=== PATIENT | female | born 1990 | race Caucasian/White ===

== ENCOUNTER → 2021-06-18 08:49 | Outpatient (CLI) | payer OTHER, SELFPAY ==
[2021-06-18 09:45] LABS: Add Manual Diff / Slide Review NO; Basophils Absolute Auto 0 /uL (0-100); Basophils Percent Auto 0.3 % (0-2); Eosinophils Absolute Auto 0 /uL (0-450); Eosinophils Percent Auto 0.4 % (2-4); Hemoglobin 13.7 g/dL (12.0-16.0); Lymphocytes Absolute Auto 1700 /uL (1100-4500); Lymphocytes Percent Auto 15.5 % (25-40); Mean Corpuscular HGB Conc 34.2 % (30-36); Mean Corpuscular Hemoglobin 29.4 PG (26-34); Mean Corpuscular Volume 86.1 fL (80-100); Monocytes Absolute Auto 700 /uL (0-900); Monocytes Percent Auto 6.3 % (3-14); Neutrophils Absolute Auto 8500 /uL (1500-7000); Neutrophils Percent Auto 77.5 % (50-75); Platelet Count 220 X10^3/uL (150-400); Red Blood Cell Count 4.65 X10^6/uL (4.0-5.2); Red Cell Distribution Width 12.8 % (11.6-14.8)
[2021-06-18 10:08] LABS: Appearance Urine UA CLEAR; Bilirubin Urine UA NEGATIVE (NEGATIVE); Color Urine UA YELLOW; Glucose Urine UA NEGATIVE (Negative); Ketones Urine UA NEGATIVE (NEGATIVE); Leukocyte Esterase Urine UA NEGATIVE (NEGATIVE); Nitrite Urine UA NEGATIVE (Negative); Occult Blood Urine UA NEGATIVE (Negative); Protein Urine UA NEGATIVE (Negative); pH Urine UA 7.5 (4.5-8.0)
[2021-06-19 06:40] LABS: RPR Screen Non Reactive (Non Reactive)
[2021-06-19 08:10] LABS: Varicella IgG Antibody 3900 index (Immune >165)
[2021-06-19 16:25] LABS: Hepatitis B Surface Antigen NEGATIVE s/c (NEGATIVE)
[2021-06-19 16:49] LABS: HIV 1 & 2 Ab/Ag 4th Gen Combo NEGATIVE (NEGATIVE); Hep C Virus Ab w/Reflex Quant NEGATIVE s/c (NEGATIVE)
[2021-06-28 14:19] LABS: Rubella Antibody IgG 53.7 IU/mL (>15)
== END ==
PROVIDERS: Referring Provider Obstetrics & Gynecology; Visit Provider Obstetrics & Gynecology
DX: Z34.01 Encounter for supervision of normal first pregnancy, first trimester (principal)
CPT/HCPCS: 36415; 80055; 81003; 86787; 86803; 87086; 87389

== ENCOUNTER → 2021-07-23 15:10 | Outpatient (CLI) | payer OTHER, SELFPAY ==
[2021-07-26 00:04] LABS: AFP, Serum 18.6 ng/mL (.); Calc Gestational Age Ultrasound (.); Estriol, Free 0.69 ng/mL (.); Inhibin A, Dimeric 106.49 pg/mL (.); Inhibin A, MoM 0.68 (.); Maternal Ethnicity Caucasian (.); Maternal Weight 155 lbs (.); Number of Fetuses No (.); OSBR Risk 1 IN 10000 (.); Results Report (.); Test Results *Screen Negative* (.); hCG, MoM 0.77 (.); hCG, Serum 29309 mIU/mL (.)
== END ==
PROVIDERS: Referring Provider Obstetrics & Gynecology; Visit Provider Obstetrics & Gynecology
DX: Z34.02 Encounter for supervision of normal first pregnancy, second trimester (principal)
CPT/HCPCS: 36415; 82105; 82677; 84702; 86336; 86850; 86900; 86901

== ENCOUNTER → 2021-08-20 14:26 | Outpatient (CLI) | payer OTHER, SELFPAY ==
--- NOTE | 2021-08-20 14:28 | DI.US.S_ITS ---
PROCEDURE: US OB >= 14 WEEKS FETUS INDICATIONS: ANATOMY SCAN OUTSIDE/PRIOR DATING DATA: Last menstrual period (LMP): 04/01/2021 LMP-based estimated date of delivery (BAMBI): 01/06/2022. First dating scan (date and location): 06/18/2021. Estimated date of delivery (BAMBI) from first dating scan: 01/10/2022. The calculations are made using the ultrasound BAMBI of 01/10/2022. TECHNIQUE: Real-time scanning was performed of the fetus, with image documentation and biometric measurements. COMPARISON: [facility], , OB >= 14 WEEKS FETUS, 08/04/2021, 13:44. FINDINGS: General: A single living intrauterine gestation is present. Presentation: Vertex. Placenta: Placental position is posterior , without previa. Amniotic fluid index: 10.9 cm, normal range is 5-24 cm. heart rate: 140 beats per minute. Maternal cervical canal: 3.7 cm long. Normal lower limit is 2.5 cm. biometrics: Biparietal diameter: 4.6 cm, 20 weeks Head circumference: 17.2 cm, 19 weeks 5 days Abdominal circumference: 14 cm, 19 weeks 3 days Femur length: 3.2 cm, 20 weeks Clinically estimated gestational age: 19 weeks 4 days Composite gestational age from present scan: 19 weeks 6 days Estimated weight and percentile: 310 g; 55th percentile Anatomic survey: Neuro: Ventricles are non-dilated at less than 10 mm. Cisterna magna is normal at 3-11 mm. Cerebellum is normal in size and morphology. Nuchal skin fold: Normal at less than 6 mm between 14-21 weeks gestational age. Face: Nose and lips, facial profile are normal. Spine: No evidence for spina bifida. Heart: 4-chambered heart is present, with normal ventricular outflow tracts. Diaphragm: Diaphragm is intact. Stomach: Left-sided stomach is present. Kidneys: No hydronephrosis. Normal is less than 5 mm in 2nd trimester, less than 7 mm in 3rd trimester. Cord: 3-vessel cord has orthotopic insertion. Bladder: Normal in size. Extremities: All 4 extremities identified. IMPRESSION: 1. 19 week 6 day single living IUP. 2. Normal anatomic survey. We strive to produce accurate, complete, and clear reports of imaging services. To assist us in improving patient care, this report was composed using standard report templates and voice recognition software. Therefore, it may contain abnormal punctuation, insertions and/or omissions. Occasional wrong-word or sound-alike substitutions may occur. Though we review the report and make efforts to correct it, we do recommend that the report be read carefully in proper context to recognize any text inaccuracies. Dictated by: Darío ROLLE Interpreted: Hammad Holliday MD on 08/20/2021 at 16:29 Approved by: Hammad Holliday M.D. on 08/21/2021 at 9:14
== END ==
PROVIDERS: Referring Provider Obstetrics & Gynecology; Visit Provider Obstetrics & Gynecology
DX: Z34.02 Encounter for supervision of normal first pregnancy, second trimester (principal); Z3A.19 19 weeks gestation of pregnancy
CPT/HCPCS: 76811

== ENCOUNTER → 2021-10-04 10:35 | Outpatient (CLI) | payer OTHER, SELFPAY ==
[2021-10-04 12:27] LABS: Hematocrit 35.9 % (36-46); Hemoglobin 12.6 g/dL (12.0-16.0)
[2021-10-04 13:07] LABS: GTT (PREG) 1 Hour PP 50gm Dose 127 mg/dL (76-139)
== END ==
PROVIDERS: Referring Provider Obstetrics & Gynecology; Visit Provider Obstetrics & Gynecology
DX: Z34.02 Encounter for supervision of normal first pregnancy, second trimester (principal); Z3A.25 25 weeks gestation of pregnancy
CPT/HCPCS: 36415; 82950; 85014; 85018

== ENCOUNTER 2021-12-09 16:33 | Outpatient (CLI) | payer OTHER, SELFPAY ==
[2021-12-09] MEDS: BETAMETHASONE 30 MG/5 ML MDV 12 MG IM (17:39)
== END 2021-12-09 18:02 | disposition home or self-care (01) ==
LOC: OB 12-11 07:47
PROVIDERS: PCP Obstetrics & Gynecology; Referring Provider Obstetrics & Gynecology; Visit Provider Obstetrics & Gynecology
DX: O36.5930 Maternal care for other known or suspected poor fetal growth, third trimester, not applicable or unspecified (principal); Z3A.36 36 weeks gestation of pregnancy; O47.03 False labor before 37 completed weeks of gestation, third trimester; Z34.03 Encounter for supervision of normal first pregnancy, third trimester
CPT/HCPCS: 59025; 87653; 96372; G0378; G0379; J0702

== ENCOUNTER → 2021-12-09 16:48 | Outpatient (CLI) | payer OTHER, SELFPAY ==
--- NOTE | 2021-12-10 06:05 | PM.OBTRLD ---
Visit Information Visit Information Date of evaluation: 12/10/21 Primary OB Provider: Keli Crandall On-call OB Provider: Keli Crandall Reason for Evaluation: Yes non-stress test non-stress test reason: other (IUGR) [facility] Medical History (Updated 12/10/21 @ 05:39 by Keli Crandall MD) Acne (~2001) Chicken pox (~1992) Headache (~1997) Migraines (~2004) Wears glasses Surgical History (Updated 06/12/21 @ 15:18 by Kenneth Gilman, RN) Anesthesia H/O wisdom tooth extraction (~2008) History of plastic surgery (~1991) Family History (Updated 06/12/21 @ 15:26 by Kenneth Gilman, RN) Brother Hypertension Mental health problem Mother Autoimmune disease Father Healthy adult Grandmother Cancer Grandfather Healthy adult Grandmother Family history unknown Grandfather No problems noted. Social History marital status: unmarried,single details: Osmar Shari household members: significant other lives independently: Yes caregiver/support person: No pets and animals: Yes (1 Dog ) education level: college (B.A. ) occupational status: employed ([employer]) current occupational exposures/hazards: Yes Previous occupational history: exposure to covid gracie/zoroastrianism: None special gracie needs: No travel history: other (none) leisure activities: exercise seatbelt use: always do you feel safe at home: Yes Smoking Status: Never smoker second hand exposure: No alcohol intake: former (socially) substance use type: does not use and marijuana (former 10 years ago ) during the past year weight has: increased > 10 lbs (>15 in the last year ) well-balanced diet: daily or most days daily servings fruits/ve or more times/day caffeine: Yes (1 cup/tea) Type(s) of exercise: walking frequency: 1-2 times per week Evaluation Evaluation Baseline heart rate: 130 Variability: Moderate (11-25) monitor accelerations: Present Monitor Decelerations: Absent Contraction Frequency (minutes): 4 Uterine Contraction Intensity: Mild Category of Tracing: Reactive Diagnosis, Plan/Disposition Plan/Disposition Plan: Assessment: 30-year-old 1 para 0 at 36 weeks gestation with IUGR Reactive nonstress test Plan: Follow-up in 3 days for repeat nonstress test kick counts OB Disposition: home
[2021-12-10 13:12] LABS: Strep Grp B PCR NEG for Grp B Strep
== END ==
PROVIDERS: PCP Obstetrics & Gynecology; Visit Provider Obstetrics & Gynecology
DX: Z34.03 Encounter for supervision of normal first pregnancy, third trimester (principal); Z3A.36 36 weeks gestation of pregnancy
CPT/HCPCS: 87653

== ENCOUNTER 2021-12-10 12:46 | Outpatient (CLI) | payer OTHER, SELFPAY ==
[2021-12-10] MEDS: BETAMETHASONE 30 MG/5 ML MDV 12 MG IM (12:59)
== END 2021-12-10 13:15 | disposition home or self-care (01) ==
LOC: LABOR 13:03 → OB 12-11 07:46
PROVIDERS: PCP Obstetrics & Gynecology; Referring Provider Obstetrics & Gynecology; Visit Provider Obstetrics & Gynecology
DX: Z34.03 Encounter for supervision of normal first pregnancy, third trimester (principal); Z3A.36 36 weeks gestation of pregnancy
CPT/HCPCS: 96372; G0378; G0379; J0702

== ENCOUNTER 2021-12-12 15:48 | Outpatient (CLI) | payer OTHER, SELFPAY | END 2021-12-12 16:58 | disposition home or self-care (01) | LOC: OB 12-16 06:36 | PROVIDERS: PCP Obstetrics & Gynecology; Referring Provider Obstetrics & Gynecology; Visit Provider Obstetrics & Gynecology | DX: Z34.03 Encounter for supervision of normal first pregnancy, third trimester (principal); Z3A.36 36 weeks gestation of pregnancy | CPT/HCPCS: 59025; G0378; G0379 ==

== ENCOUNTER 2021-12-15 08:39 | Observation (INO) | payer OTHER, SELFPAY ==
--- NOTE | 2021-12-15 09:58 | DI.US.S_ITS ---
PROCEDURE: US OB LIMITED INDICATIONS: IUGR OUTSIDE/PRIOR DATING DATA: Last menstrual period (LMP): 04/01/2021 LMP-based estimated date of delivery (BAMBI): 01/06/2022 First dating scan (date and location): 06/18/2021 Estimated date of delivery (BAMBI) from first dating scan: 01/10/2022 TECHNIQUE: Real-time scanning was performed of the fetus for biophysical profile, with image documentation. Color and pulse Doppler interrogation was also performed of the umbilical artery near its insertion into the placenta. Endovaginal scanning: Not indicated. COMPARISON: [facility], , OB >= 14 WEEKS FETUS, 11/24/2021, 15:56. [facility], , US OB >= 14 WEEKS FETUS, 12/09/2021, 16:02. FINDINGS: General: A single living intrauterine gestation is present. Presentation: Breech. Placenta: Placental position is right posterior, without previa. Amniotic fluid index: 6.8 cm, normal range is 5-24 cm. Single deepest vertical pocket is 4.4 cm. heart rate: 152 beats per minute. Maternal cervical canal: 2.9 cm long. Normal lower limit is 2.5 cm. BPD: 8.7 cm, 35 weeks, 2 days. HC: 33 cm, 37 weeks, 4 days AC: 28.5 cm, 32 weeks, 4 days. FL: 7 cm, 36 weeks, 0 days. Clinically estimated gestational age: 35 weeks, 3 days. Estimated gestational age from initial scan: 36 weeks, 2 days. Estimated weight is 2403 grams, 10 percent. Biophysical profile: Tone: 2 points. Movement: 2 points. Respiration: 2 points. Largest pocket of fluid: 2 points. Umbilical artery Doppler: 1.8, 1.7 and 1.9 Incidentally noted of prominent bilateral renal pelvis in the fetus measures up to 7.1 mm in with on the right side and 8.1 mm in with on the left side. Small left renal cysts are also seen. IMPRESSION: 1. Single live intrauterine gestation with fetus in breech presentation. heart rate is 152 beats per minute. Estimated gestational age based on current study is 35 weeks 3 days. Estimated gestational age from initial scan is 36 weeks, 2 days. 2. Estimated weight is at 10 percent. 3. biophysical profile score is 8/8. Normal umbilical artery S/D ratio. 4. Prominence of bilateral renal pelvis is seen as above concerning for hydronephrosis suggest follow-up ultrasound after . Possible small left renal cysts are also noted. We strive to produce accurate, complete, and clear reports of imaging services. To assist us in improving patient care, this report was composed using standard report templates and voice recognition software. Therefore, it may contain abnormal punctuation, insertions and/or omissions. Occasional wrong-word or sound-alike substitutions may occur. Though we review the report and make efforts to correct it, we do recommend that the report be read carefully in proper context to recognize any text inaccuracies. Dictated by: Juan Francois M.D. on 12/15/2021 at 11:42 Approved by: Juan Francois M.D. on 12/15/2021 at 11:49
[2021-12-15 11:22] LABS: Add Manual Diff / Slide Review NO; Basophils Absolute Auto 100 /uL (0-100); Basophils Percent Auto 0.4 % (0-2); Eosinophils Absolute Auto 100 /uL (0-450); Eosinophils Percent Auto 0.4 % (2-4); Hemoglobin 13.8 g/dL (12.0-16.0); Lymphocytes Absolute Auto 2300 /uL (1100-4500); Mean Corpuscular HGB Conc 34.5 % (30-36); Mean Corpuscular Hemoglobin 30.1 PG (26-34); Mean Corpuscular Volume 87.2 fL (80-100); Monocytes Absolute Auto 1300 /uL (0-900); Monocytes Percent Auto 7.6 % (3-14); Neutrophils Absolute Auto 13700 /uL (1500-7000); Neutrophils Percent Auto 78.6 % (50-75); Platelet Count 160 X10^3/uL (150-400); Red Blood Cell Count 4.59 X10^6/uL (4.0-5.2); Red Cell Distribution Width 13.5 % (11.6-14.8); White Blood Cell Count 17.4 X10^3/uL (4.5-11.0)
[2021-12-15 11:33] LABS: Alanine Aminotransferase 18 IU/L (<35); Albumin 3.4 g/dL (3.5-5.0); Albumin Globulin Ratio 1.1 (1.0-2.8); Alkaline Phosphatase 121 U/L (38-126); Aspartate Aminotransferase 20 IU/L (14-36); BUN Creatinine Ratio 15.4 (6-22); Bilirubin Total 0.3 mg/dL (0.2-1.3); Blood Urea Nitrogen 8 mg/dL (7-17); Calcium 8.8 mg/dL (8.4-10.2); Carbon Dioxide 22 mmol/L (22-32); Chloride 107 mmol/L (98-107); Estimated Glomerular Filt Rate > 60 mL/min (>60); Globulin 3.1 g/dL (1.7-4.1); Glucose 97 mg/dL (70-100); HEMOLYSIS < 15 (0-50); Lactate Dehydrogenase 330 U/L (313-618); Potassium 3.8 mmol/L (3.4-5.1); Sodium 136 mmol/L (137-145); Total Protein 6.5 g/dL (6.3-8.2); Uric Acid 5.3 mg/dL (2.5-6.2)
== END 2021-12-15 11:30 | disposition home or self-care (01) ==
LOC: LABOR 08:41
PROVIDERS: Obstetrics & Gynecology; Admitting Provider Obstetrics & Gynecology; Referring Provider Obstetrics & Gynecology; Visit Provider Obstetrics & Gynecology
DX: Z34.03 Encounter for supervision of normal first pregnancy, third trimester (principal); Z3A.36 36 weeks gestation of pregnancy
CPT/HCPCS: 36415; 59025; 59050; 76815; 76819; 76820; 80053; 83615; 84550; 85025; G0378; G0379

== ENCOUNTER 2021-12-18 09:48 | Outpatient (CLI) | payer OTHER, SELFPAY ==
[2021-12-18 11:01] LABS: Appearance Urine UA CLEAR; Bilirubin Urine UA NEGATIVE (NEGATIVE); Color Urine UA YELLOW; Glucose Urine UA NEGATIVE (Negative); Ketones Urine UA NEGATIVE (NEGATIVE); Leukocyte Esterase Urine UA NEGATIVE (NEGATIVE); Nitrite Urine UA NEGATIVE (Negative); Occult Blood Urine UA NEGATIVE (Negative); Protein Urine UA NEGATIVE (Negative); Specific Gravity Urine UA <=1.005 (1.000-1.035); Urobilinogen Urine UA 0.2 E.U./dL (0.2); pH Urine UA 6.5 (4.5-8.0)
[2021-12-18 11:02] LABS: Add Manual Diff / Slide Review NO; Basophils Absolute Auto 100 /uL (0-100); Basophils Percent Auto 0.4 % (0-2); Eosinophils Absolute Auto 0 /uL (0-450); Eosinophils Percent Auto 0.2 % (2-4); Hematocrit 40.6 % (36-46); Hemoglobin 14.2 g/dL (12.0-16.0); Lymphocytes Absolute Auto 2100 /uL (1100-4500); Lymphocytes Percent Auto 12.3 % (25-40); Mean Corpuscular Hemoglobin 30.3 PG (26-34); Mean Corpuscular Volume 86.5 fL (80-100); Monocytes Absolute Auto 1300 /uL (0-900); Monocytes Percent Auto 7.5 % (3-14); Neutrophils Absolute Auto 13300 /uL (1500-7000); Neutrophils Percent Auto 79.6 % (50-75); Platelet Count 151 X10^3/uL (150-400); Red Blood Cell Count 4.69 X10^6/uL (4.0-5.2); Red Cell Distribution Width 13.7 % (11.6-14.8); White Blood Cell Count 16.7 X10^3/uL (4.5-11.0)
[2021-12-18 11:13] LABS: Aspartate Aminotransferase 29 IU/L (14-36); BUN Creatinine Ratio 13.2 (6-22); Blood Urea Nitrogen 7 mg/dL (7-17); Estimated Glomerular Filt Rate > 60 mL/min (>60); Uric Acid 5.6 mg/dL (2.5-6.2)
--- NOTE | 2021-12-18 15:47 | PM.OBTRLD ---
Visit Information Visit Information Date of evaluation: 12/18/21 Primary OB Provider: Keli Crandall Reason for Evaluation: Yes non-stress test non-stress test reason: other (SGA, low fluid) [facility] Medical History (Updated 12/10/21 @ 05:39 by Keli Crandall MD) Acne (~2001) Chicken pox (~1992) Headache (~1997) Migraines (~2004) Wears glasses Surgical History (Updated 06/12/21 @ 15:18 by Kenneth Gilman, RN) Anesthesia H/O wisdom tooth extraction (~2008) History of plastic surgery (~1991) Family History (Updated 06/12/21 @ 15:26 by Kenneth Gilman, RN) Brother Hypertension Mental health problem Mother Autoimmune disease Father Healthy adult Grandmother Cancer Grandfather Healthy adult Grandmother Family history unknown Grandfather No problems noted. Social History marital status: unmarried,single details: Osmar Shari household members: significant other lives independently: Yes caregiver/support person: No pets and animals: Yes (1 Dog ) education level: college (B.A. ) occupational status: employed ([employer]) current occupational exposures/hazards: Yes Previous occupational history: exposure to covid gracie/yarsani: None special gracie needs: No travel history: other (none) leisure activities: exercise seatbelt use: always do you feel safe at home: Yes Smoking Status: Never smoker second hand exposure: No alcohol intake: former (socially) substance use type: does not use and marijuana (former 10 years ago ) during the past year weight has: increased > 10 lbs (>15 in the last year ) well-balanced diet: daily or most days daily servings fruits/ve or more times/day caffeine: Yes (1 cup/tea) Type(s) of exercise: walking frequency: 1-2 times per week Exam Vital Signs (past 8 hours): Normal PI labs Objective Labs Result Diagrams: 12/18/21 10:25 12/18/21 10:25 Labs: Laboratory Results - last 24 hr 12/18/21 12/18/21 12/18/21 10:25 10:25 10:42 WBC 16.7 H RBC 4.69 Hgb 14.2 Hct 40.6 MCV 86.5 MCH 30.3 MCHC 35.0 RDW 13.7 Plt Count 151 Neut % (Auto) 79.6 H Lymph % (Auto) 12.3 L [place] % (Auto) 7.5 Eos % (Auto) 0.2 L Baso % (Auto) 0.4 Neut # (Auto) 18145 H Lymph # (Auto) 2100 [place] # (Auto) 1300 H Eos # (Auto) 0 Baso # (Auto) 100 BUN 7 Creatinine 0.53 Estimated GFR > 60 BUN/Creatinine Ratio 13.2 Uric Acid 5.6 AST 29 Urine Color Yellow Urine Appearance Clear Urine pH 6.5 Ur Specific Sharon <=1.005 Urine Protein Negative Urine Glucose (UA) Negative Urine Ketones Negative Urine Occult Blood Negative Urine Nitrate Negative Urine Bilirubin Negative Urine Urobilinogen 0.2 Ur Leukocyte Esterase Negative Evaluation Evaluation Baseline heart rate: 140 Variability: Moderate (11-25) monitor accelerations: Present Monitor Decelerations: Absent Category of Tracing: Reactive Diagnosis, Plan/Disposition Plan/Disposition Plan: Assessment: 36 weeks, SGA, oligohydramnios Plan: [facility] F/U 3 days for repeat NST OB Disposition: home
== END 2021-12-18 11:34 | disposition home or self-care (01) ==
LOC: LABOR 11:07 → OB 12-23 07:57
PROVIDERS: Referring Provider Obstetrics & Gynecology; Visit Provider Obstetrics & Gynecology
DX: O41.03X0 Oligohydramnios, third trimester, not applicable or unspecified (principal); Z3A.36 36 weeks gestation of pregnancy
CPT/HCPCS: 59025; 81003; 84450; 84550; 85025; G0378; G0379

== ENCOUNTER 2021-12-23 09:37 | Outpatient (CLI) | payer OTHER, SELFPAY ==
--- NOTE | 2021-12-23 10:56 | P.TNLD_ITS ---
Visit Information Visit Information Date of evaluation: 12/23/21 Primary OB Provider: Keli Crandall Reason for Evaluation: Yes non-stress test non-stress test reason: other (IUGR) [facility] Medical History (Updated 12/10/21 @ 05:39 by Keli Crandall MD) Acne (~2001) Chicken pox (~1992) Headache (~1997) Migraines (~2004) Wears glasses Surgical History (Updated 06/12/21 @ 15:18 by Kenneth Gilman, RN) Anesthesia H/O wisdom tooth extraction (~2008) History of plastic surgery (~1991) Family History (Updated 06/12/21 @ 15:26 by Kenneth Gilman, RN) Brother Hypertension Mental health problem Mother Autoimmune disease Father Healthy adult Grandmother Cancer Grandfather Healthy adult Grandmother Family history unknown Grandfather No problems noted. Social History marital status: unmarried,single details: Osmar Shari household members: significant other lives independently: Yes caregiver/support person: No pets and animals: Yes (1 Dog ) education level: college (B.A. ) occupational status: employed ([employer]) current occupational exposures/hazards: Yes Previous occupational history: exposure to covid gracie/voodoo: None special gracie needs: No travel history: other (none) leisure activities: exercise seatbelt use: always do you feel safe at home: Yes Smoking Status: Never smoker second hand exposure: No alcohol intake: former (socially) substance use type: does not use and marijuana (former 10 years ago ) during the past year weight has: increased > 10 lbs (>15 in the last year ) well-balanced diet: daily or most days daily servings fruits/ve or more times/day caffeine: Yes (1 cup/tea) Type(s) of exercise: walking frequency: 1-2 times per week Evaluation Evaluation Baseline heart rate: 145 Variability: Moderate (11-25) monitor accelerations: Present Monitor Decelerations: Absent Category of Tracing: Reactive Diagnosis, Plan/Disposition Plan/Disposition Plan: Assessment: 31-year-old 1 para 0 at 38 weeks gestation with intrauterine growth restriction Normal DRAGAN Reactive nonstress test Plan: Follow-up in 3 days Primary section schedule due to breech
== END 2021-12-23 11:15 | disposition home or self-care (01) ==
LOC: LABOR 10:35 → OB 12-25 07:43
PROVIDERS: PCP Obstetrics & Gynecology; Referring Provider Obstetrics & Gynecology; Visit Provider Obstetrics & Gynecology
DX: O36.5930 Maternal care for other known or suspected poor fetal growth, third trimester, not applicable or unspecified (principal); Z3A.38 38 weeks gestation of pregnancy
CPT/HCPCS: 59025; G0378; G0379

== ENCOUNTER 2021-12-26 07:53 | Inpatient (IN) | payer OTHER, SELFPAY ==
[2021-12-26 09:30] LABS: COVID19 -Nasal RAPID Negative (Negative)
[2021-12-26] MEDS: LACTATED RINGERS 1,000 ML 1000 ML IV (09:40)
[2021-12-26] MEDS: ACETAMINOPHEN 325 MG TABLET 975 MG PO (10:02)
[2021-12-26] MEDS: CITRIC ACID/SODIUM CITRATE 15 ML SOLUTION 30 ML PO (10:02)
[2021-12-26 10:03] LABS: Add Manual Diff / Slide Review NO; Basophils Absolute Auto 100 /uL (0-100); Basophils Percent Auto 0.3 % (0-2); Eosinophils Absolute Auto 100 /uL (0-450); Eosinophils Percent Auto 0.3 % (2-4); Hematocrit 42.3 % (36-46); Hemoglobin 14.4 g/dL (12.0-16.0); Lymphocytes Absolute Auto 2100 /uL (1100-4500); Lymphocytes Percent Auto 11.7 % (25-40); Mean Corpuscular HGB Conc 33.9 % (30-36); Mean Corpuscular Hemoglobin 29.8 PG (26-34); Mean Corpuscular Volume 87.9 fL (80-100); Monocytes Absolute Auto 1100 /uL (0-900); Monocytes Percent Auto 6.3 % (3-14); Neutrophils Absolute Auto 14500 /uL (1500-7000); Neutrophils Percent Auto 81.4 % (50-75); Platelet Count 176 X10^3/uL (150-400); Red Blood Cell Count 4.81 X10^6/uL (4.0-5.2); Red Cell Distribution Width 13.1 % (11.6-14.8); White Blood Cell Count 17.8 X10^3/uL (4.5-11.0)
--- NOTE | 2021-12-26 10:16 | PM.OBHP.IH.1 ---
OB HPI Date/Time Date of admission: 12/26/21 Date Patient Seen: 12/26/21 Time Patient Seen: 08:10 History of Present Condition Chief complaint: NST BAMBI Calculator Estimated Delivery Date Method Current WG Current Estimate 01/06/22 LMP (Uncertain) 38w 3d Other Estimates 01/12/22 Ultrasound #1 37w 4d Estimated Gestational Age (weeks): 38+3 : 1 Para: 0 care: good care, initiated at week # (11), number of visits (11) and pounds weight gain (20) Dating criteria OB: LMP confirmed by 1st trimester US Ultrasounds: normal 1st trimester US and normal mid trimester US Obstetrical complications: growth restriction Medical complications OB: none Indications Operative indications ( section): breech presentation Preadmission Labs Last OB Lab Results: Blood Type O Positive 12/26/21 09:30 12/26/21 Antibody Screen Negative 12/26/21 09:30 12/26/21 Hematocrit 42.3 % (36-46) 12/26/21 09:30 12/26/21 Hemoglobin 14.4 g/dL (12.0-16.0) 12/26/21 09:30 12/26/21 Hepatitis B Surface Antigen Negative s/c (NEGATIVE) 06/18/21 08:55 06/18/21 Hepatitis C Antibody Negative s/c (NEGATIVE) 06/18/21 08:55 06/18/21 Rubella Antibody 53.7 IU/mL (>15) 06/18/21 08:55 06/18/21 Varicella-Zoster IgG Antibody 3900 index (Immune >165) 06/18/21 08:55 06/18/21 Glucose 1 Hour 127 mg/dL (76-139) 10/04/21 11:45 10/04/21 Group B Streptococcus (PCR) Neg for grp b strep 12/09/21 16:48 12/09/21 -: Chlamydia screen: negative, Gonorrhea screen: negative and Urine: negative -: PAP smear: Normal Genetic Screens: Quad screen: Normal External Labs -: Urine: negative Evaluation Evaluation Baseline heart rate: 135 Variability: Average (6-10) monitor accelerations: Present Monitor Decelerations: Late Status: Category ll PFS Medical History (Updated 12/10/21 @ 05:39 by Keli Crandall MD) Acne (~2001) Chicken pox (~1992) Headache (~1997) Migraines (~2004) Wears glasses Surgical History (Updated 06/12/21 @ 15:18 by Kenneth Gilman RN) Anesthesia H/O wisdom tooth extraction (~2008) History of plastic surgery (~1991) Family History (Updated 06/12/21 @ 15:26 by Kenneth Gilman RN) Brother Hypertension Mental health problem Mother Autoimmune disease Father Healthy adult Grandmother Cancer Grandfather Healthy adult Grandmother Family history unknown Grandfather No problems noted. Social History marital status: unmarried,single details: Osmar Mccarthy household members: significant other lives independently: Yes caregiver/support person: No pets and animals: Yes (1 Dog ) education level: college (B.A. ) occupational status: employed ([employer]) current occupational exposures/hazards: Yes Previous occupational history: exposure to covid gracie/druze: None special gracie needs: No travel history: other (none) leisure activities: exercise seatbelt use: always do you feel safe at home: Yes Smoking Status: Never smoker second hand exposure: No alcohol intake: former (socially) substance use type: does not use and marijuana (former 10 years ago ) during the past year weight has: increased > 10 lbs (>15 in the last year ) well-balanced diet: daily or most days daily servings fruits/ve or more times/day caffeine: Yes (1 cup/tea) Type(s) of exercise: walking frequency: 1-2 times per week Meds Home Medications and Allergies Home Medications Medication Instructions Recorded Confirmed Type prenat.vits,brian,prb-[id number] 1 tab PO DAILY 06/12/21 12/23/21 History Allergies Allergy/AdvReac Type Severity Reaction Status Date / Time amoxicillin AdvReac Intermediate hives Verified 12/23/21 09:17 Sulfa (Sulfonamide AdvReac Intermediate hives Verified 12/23/21 09:17 Antibiotics) OB Exam Narrative Exam Narrative: Generally: Patient lying in bed, no acute distress Lungs: Clear to auscultation bilaterally Cardiovascular: Regular rate and rhythm Abdomen: Soft, gravid Fundal height: 37 cm Estimated weight: 6 lb Extremities: No edema Objective Labs Result Diagrams: 12/26/21 09:30 Labs: Laboratory Results - last 24 hr 12/26/21 12/26/21 09:02 09:30 WBC 17.8 H RBC 4.81 Hgb 14.4 Hct 42.3 MCV 87.9 MCH 29.8 MCHC 33.9 RDW 13.1 Plt Count 176 Neut % (Auto) 81.4 H Lymph % (Auto) 11.7 L [place] % (Auto) 6.3 Eos % (Auto) 0.3 L Baso % (Auto) 0.3 Neut # (Auto) 55360 H Lymph # (Auto) 2100 [place] # (Auto) 1100 H Eos # (Auto) 100 Baso # (Auto) 100 SARS-CoV-2 (PCR) Negative Assessment and Plan Assessment and Plan Assessment and Plan narrative: Assessment: 31-year-old 1 para 0 at 38-,3/7 weeks gestation with a persistent breech presentation and SGA Nonreassuring nonstress test Plan: Primary section The risks, benefits, and alternatives to the procedure were explained to the patient. The risks including bleeding, infection, injury to the bowel, bladder, or ureters. She understands these risks and agrees to proceed. A full par Q was held and consent form was signed. Time Spent with Patient Total time spent with greater than 50% in coordination of care (as documented) at patient's floor/unit and/or counseling patient:: 15-24 minutes
--- NOTE | 2021-12-26 10:16 | PM.PREOP ---
Pre-operative Note COVID-19 COVID-19 status: Negative Result date/Date tested (Pos, Neg/Pending): 12/26/21 Criteria for continued procedure: Deterioration of the patient's condition or overall health and Non-surgical alternatives not available or appropriate per current SOC Interval Note History & Physical reviewed/Exam performed by Physician: Yes Changes to H&P: No H&P completed within 30 days and has changed as indicated here:: 12/26/21
--- NOTE | 2021-12-26 11:29 | PM.OBCS.1 ---
Operative Date/Time/Diagnoses Date of procedure: 12/26/21 Time of procedure: 11:29 Pre-op diagnosis: IUGR Non reactive Nonstress Test 38+3 weeks gestation Post-op diagnosis: same Procedure & Clinicians Procedure: Primary low-transverse section Same procedure as scheduled: Yes Indications: 38+ 3 weeks gestation Intrauterine growth restriction Non reactive nonstress test Surgeon: Keli Aburto Yes if Unassisted: No Shoe Parts Molder: Neena Eaton Reason for Shoe Parts Molder: The administrative library assistant was necessary for entry into the abdomen with retraction. She was necessary for assisting in delivery of the breech presentation. In closure of the uterus and abdomen was necessary for retraction and clipping of suture. She also closed the contralateral fascia. Anesthesia Type: Spinal (With Duramorph) Operative Notes Findings: Live male infant in the complete breech presentation Normal uterus, tubes, and ovaries Closure Type: primary Specimen(s): cord blood, cord pH and placenta Intraoperative meds administered: Acetaminophen, Duramorph, Ketorolac and Pitocin Applied: Catheter (To continuous drainage) Estimated Blood Loss (mL): 200 Blood products transfused: none Procedure in detail: The patient was taken to the operating room where she was placed in the seated position. Spinal anesthesia with Duramorph was administered. She was then placed in the dorsal supine position with a leftward tilt. She was prepped and draped in the usual sterile fashion. A timeout was performed. After spinal analgesia was found to be adequate, a Pfannenstiel skin incision was made 2 fingerbreadths above the pubic symphysis and carried through to the underlying layer of fascia. The fascia was nicked in the midline, and the incision extended bilaterally with the Stephens scissors. The superior aspect of the fascial incision was grasped with a Sarika clamps, elevated, and the underlying rectus muscles dissected off sharply and bluntly. Attention was then turned to the inferior aspect of this incision which in a similar fashion was grasped with a Sarika clamps, elevated, and the underlying rectus muscles dissected off sharply and bluntly. The rectus muscles were in the midline. The peritoneum was identified, grasped between 2 hemostats, and entered sharply with the Metzenbaum scissors. This incision was extended superiorly and inferiorly with good visualization of the bladder. The bladder blade was inserted. The vesicouterine peritoneum was identified, grasped with the pickup, and entered sharply with the Metzenbaum scissors. This incision was extended bilaterally, and the bladder flap was created digitally. The bladder blade was reinserted. The lower uterine segment was incised in a transverse fashion with the scalpel. Upon entering the amniotic sac there was a small amount of clear amniotic fluid. The was delivered by total breech extraction. The nose and mouth were suctioned with bulb suction. The cord was double clamped and cut after 1 minute. The was handed off to waiting RN and RT. The placenta was delivered manually. Pitocin was given in the IV fluids. The uterus was cleared of all clots and debris. The cervix was opened using a ring forceps, and then the ring forcep handed off of the table. The uterine incision was repaired with #1 chromic in a running interlocking fashion, and a second layer the same suture was used for an imbricating layer. Hemostasis was achieved. The tubes and ovaries were examined and were found to be normal. The gutters were cleared of all clots and debris. The bladder flap was reapproximated using 2-0 Vicryl in a running fashion. The parietal peritoneum was closed using 2-0 Vicryl in a running fashion. The fascia was reapproximated using 0 Vicryl in a running fashion. The subcutaneous layer was copiously irrigated with warm normal saline. 5 simple interrupted sutures of 3-0 Vicryl were placed to reapproximate the subcutaneous layer. The skin was closed with 4-0 Monocryl in a subcuticular fashion. Steri-Strips were placed. An Aquacel dressing was placed. The uterus was expressed of a small amount of old blood. Sponge, lap, and instrument counts were correct x-2. The patient tolerated the procedure well, and was taken to PACU in stable condition. Complications: none [place] Baby 1: Gender: Male Presentation: breech Details: complete Placental Delivery Description: Manual Removal Cord Vessel Description: 3 Vessels score (1 min): 9 score (5 min): 9 weight: 6 lb 2 oz Post-operative Condition: stable Disposition: PACU Aftercare: routine postop
[2021-12-26 12:11] VITALS: BP 128/87
[2021-12-26] MEDS: OXYTOCIN 10 UNIT/ML VIAL IM (12:33)
[2021-12-26] MEDS: LACTATED RINGERS 1,000 ML 100 ML IV (12:34)
[2021-12-26] MEDS: KETOROLAC 30 MG/ML VIAL IV (18:22)
[2021-12-26] MEDS: ACETAMINOPHEN 325 MG TABLET 650 MG PO (18:23)
[2021-12-27] MEDS: KETOROLAC 30 MG/ML VIAL IV ×2 (01:01→06:31)
[2021-12-27] MEDS: ACETAMINOPHEN 325 MG TABLET 650 MG PO ×4 (01:01→18:56)
[2021-12-27 07:39] LABS: Hematocrit 34.1 % (36-46); Hemoglobin 11.5 g/dL (12.0-16.0)
[2021-12-27] MEDS: DOCUSATE 100 MG CAPSULE 200 MG PO (08:54)
[2021-12-27] MEDS: PRENATAL VIT,CALC/IRON/FOLIC 1 TABLET 1 TAB PO (08:55)
[2021-12-27] MEDS: IBUPROFEN 600 MG TABLET PO ×2 (12:34→18:56)
--- NOTE | 2021-12-27 13:34 | P.PNOB_ITS ---
Subjective - OB Subjective Patient comments: no complaints, pain well controlled, tolerating diet and flatus present baby status: doing well and nursing well [place] feeding status: exclusively breast feeding Date Patient Seen: 12/27/21 Time Patient Seen: 13:34 Interval history: Patient is a 31-year-old 1 para 1 postop day # 1 status post an emergent primary low-transverse section due to late decelerations on a nonstress test. Catheter has been removed and she is able to void without the catheter. Passing flatus. Tolerating a diet. Pain is adequately controlled. No nausea or vomiting. Exam Narrative Exam Narrative: Generally: Patient is sitting up in bed, holding infant, no acute distress Lungs: Clear to auscultation bilaterally Cardiovascular: Regular rate and rhythm Abdomen: Soft. Appropriately tender. Fundus: Firm at U -1 Extremities: Negative Homans, trace edema Objective Labs Result Diagrams: 12/27/21 06:32 Labs: Laboratory Results - last 24 hr 12/27/21 06:32 Hgb 11.5 L Hct 34.1 L Assessment & Plan Plan day: 1 plan OB: routine postop care Comments: Anticipate discharge tomorrow morning Time Spent With Patient Time: Total time spent is greater than 50% in coordination of care (as documented) at patient's floor/unit and/or counseling patient: Time with patient: 15-24 minutes
[2021-12-27 15:00] VITALS: BP 114/69; PULSE 97; RESP 16; TEMP 36.8
[2021-12-27] MEDS: OXYCODONE IR 5 MG TABLET PO (20:48)
[2021-12-28] MEDS: ACETAMINOPHEN 325 MG TABLET 650 MG PO ×3 (00:46→12:45)
[2021-12-28] MEDS: IBUPROFEN 600 MG TABLET PO ×3 (00:46→12:45)
[2021-12-28] MEDS: OXYCODONE IR 5 MG TABLET PO ×2 (04:50→11:23)
[2021-12-28] MEDS: PRENATAL VIT,CALC/IRON/FOLIC 1 TABLET 1 TAB PO (08:45)
[2021-12-28] MEDS: DOCUSATE 100 MG CAPSULE 200 MG PO (08:45)
--- NOTE | 2021-12-28 11:24 | P.DS_ITS ---
Discharge Providers Provider Date of admission: 12/26/21 07:53 Discharge Date: 12/28/21 Primary care physician: Keli Crandall MD Consults: 12/26/21 12:04 Consult to Habilitation Training Specialist Routine Comment: Discharge provider: Keli Crandall MD Summary Hospital Course Date Patient Seen: 12/28/21 Time Patient Seen: 11:24 Diagnoses: 38+5 weeks gestation Non reassuring Nonstress test Breech presentation Primary low transverse C section Hospital Course: Patient is a 31-year-old 1 para 1 who presented for a nonstress test on Sunday December 26, 2021 as scheduled. She has had a baby that is been at the 8th to 10th percentile for growth. The nonstress test was nonreactive. She underwent a primary low-transverse section for persistent breech presentation and nonreassuring heart rate tracing. Her course has been unremarkable. She is discharged home on day # 2. She is tolerating a diet. She is ambulating without assistance. She has no nausea or vomiting. Pain is well controlled except some pain when she urinates. A urine for culture was sent. Prescription for antibiotic sent. She will follow-up on January 01, 2022 for Aquacel dressing removal. Peripartum Data Delivery Method: Emergency Section Laceration Description: None Episiotomy description: None Procedures: Spinal anesthesia with Duramorph Primary low-transverse section complications: other (Possible UTI) 1: Gender: Male Disposition of : home Status at Discharge Cognitive/behavioral status at discharge: oriented Functional status at discharge: independent ambulation Overall status at discharge: patient is progressing back to baseline Time Spent with Patient Time attestation: Total time spent providing and/or coordinating discharge services: Time spent: Less than 30 minutes Objective Labs Result Diagrams: 12/27/21 06:32 Exam Narrative Exam Narrative: Generally: Patient is sitting up in bed, nursing infant, no acute distress Lungs: Clear to auscultation bilaterally Cardiovascular: Regular rate and rhythm Fundus: Firm at U -2 Incision: Clean dry and intact with Aquacel dressing. Extremities: Trace edema, negative Homans Discharge Plan Discharge Plan Patient Disposition: Home Provider Discharge Comment: Call with fever, chills, redness or drainage around the incision, or bleeding vaginally more than a pad in an hour Cephalexin 500 mg 3 times a day for 5 days Tylenol 650 mg every 6 hours as needed Ibuprofen 600 mg every 6 hours as needed Oxycodone as needed every 4 hours Discharge orders & Medications Prescriptions: New cephalexin 500 mg capsule 500 mg PO TID Qty: 15 0RF Continued prenat.vits,brian,[id number] Tablet 1 tab PO DAILY 0RF Follow up/Referrals: Keli Crandall MD [Physician] - 01/01/22 1:15 pm Diet/Activity/Treatments Diet: Regular Activity: No heavy lifting Nothing in the vagina and till bleeding has stopped Skin/Wound/Dressing Care Report to your healthcare provider any signs of infection, such as:: chills, fever, increased pain, unusual drainage and unusual redness Dressing: Do not remove Visit Report/Discharge Packet Instructions: DI for , DI for Prescription Opioid Use Discharge Data Primary Care Provider: Neena Eaton
== END 2021-12-28 12:20 | disposition home or self-care (01) | DRG 788 ==
PROVIDERS: Admitting Provider Obstetrics & Gynecology; PCP Obstetrics & Gynecology; Referring Provider Obstetrics & Gynecology; Visit Provider Obstetrics & Gynecology
DX: O36.5930 Maternal care for other known or suspected poor fetal growth, third trimester, not applicable or unspecified (principal); O76 Abnormality in fetal heart rate and rhythm complicating labor and delivery; O32.8XX0 Maternal care for other malpresentation of fetus, not applicable or unspecified; Z3A.38 38 weeks gestation of pregnancy; Z37.0 Single live birth; Z20.822 Contact with and (suspected) exposure to COVID-19
CPT/HCPCS: 36415; 59050; 59200; 59510; 59514; 85014; 85018; 85025; 86850; 86900; 86901; 87635; C9803; G0379; J0690; J1885; J2274; J2590

== ENCOUNTER → 2022-05-20 16:56 | Outpatient (CLI) | payer OTHER, SELFPAY ==
--- NOTE | 2022-05-20 16:56 | DI.US.S_ITS ---
PROCEDURE: US PELVIC COMPLETE INDICATIONS: PAIN WITH VAGINAL PENETRATION. 4.5 MONTHS . TECHNIQUE: Real-time scanning was performed of the pelvic organs, with image documentation. Additional endovaginal scanning was necessary due to incomplete visualization of the adnexal and endometrial structures by transabdominal scanning. COMPARISON: None. FINDINGS: Uterus: Uterus is anteverted and normal in size at 5.8 x 3.5 x 3.1 cm. The myometrium is homogeneous. The endometrium measures 2 mm combined thickness. Ovaries: The right ovary measures 3.5 x 1.4 x 1.5 cm, with a calculated ovarian volume of 3.8 cc. The left ovary measures 3.2 x 1.9 x 1.2 cm, with a calculated ovarian volume of 3.8 cc. (The left ovary is only seen transabdominally) The ovaries have a normal sonographic appearance. Less than 12 follicles can be seen in each ovary. No adnexal masses are seen. Normal appearing arterial and venous waveforms are confirmed to each ovary. Other: No pathologic free abdominal or pelvic fluid. IMPRESSION: No imaging explanation is found for this patient's presenting symptoms. Negative for ovarian torsion. We strive to produce accurate, complete, and clear reports of imaging services. To assist us in improving patient care, this report was composed using standard report templates and voice recognition software. Therefore, it may contain abnormal punctuation, insertions and/or omissions. Occasional wrong-word or sound-alike substitutions may occur. Though we review the report and make efforts to correct it, we do recommend that the report be read carefully in proper context to recognize any text inaccuracies. Dictated by: Dereje Ferris M.D. on 05/21/2022 at 8:30 Approved by: Dereje Ferris M.D. on 05/21/2022 at 8:32
== END ==
PROVIDERS: PCP Nurse Practitioner; Referring Provider Nurse Practitioner; Visit Provider Nurse Practitioner
DX: O90.89 Other complications of the puerperium, not elsewhere classified (principal); R52 Pain, unspecified
CPT/HCPCS: 76830; 76856; 93975

== ENCOUNTER → 2022-10-12 13:09 | Outpatient (CLI) | payer OTHER, SELFPAY ==
--- NOTE | 2022-10-12 13:10 | DI.RAD.S_ITS ---
PROCEDURE: XR RIBS LT MIN 3V W CXR1V INDICATIONS: Pain in left back after fall TECHNIQUE: 2 views of the left ribs were acquired, along with a single view chest. COMPARISON: None. FINDINGS: Surgical changes and devices: None. Bones and chest wall: No fractures or dislocations. No suspicious bony lesions. Overlying soft tissues appear unremarkable. Lungs and pleura: No pleural effusions or pneumothorax. Lungs appear clear. Mediastinum: Mediastinal contours appear normal. Heart size is normal. IMPRESSION: No evidence of displaced left rib fracture. No evidence acute pulmonary process. Dictated by: Chapo Romo M.D. on 10/12/2022 at 14:00 Approved by: Chapo Romo M.D. on 10/12/2022 at 14:01
--- NOTE | 2022-10-12 13:10 | DI.RAD.S_ITS ---
PROCEDURE: XR SCAPULA LT INDICATIONS: Fall on left back TECHNIQUE: 2 views of the scapula were acquired. COMPARISON: None. FINDINGS: Bones: No fractures or dislocations. No suspicious bony lesions. Visualized ribs appear intact. Soft tissues: Overlying soft tissues appear normal. IMPRESSION: No evidence of displaced scapular fracture. Dictated by: Chapo Romo M.D. on 10/12/2022 at 14:01 Approved by: Chapo Romo M.D. on 10/12/2022 at 14:01
== END ==
PROVIDERS: PCP Nurse Practitioner; Referring Provider Physician Assistant; Visit Provider Physician Assistant
DX: R07.81 Pleurodynia (principal); M89.8X1 Other specified disorders of bone, shoulder
CPT/HCPCS: 71101; 73010

== ENCOUNTER → 2023-12-01 10:09 | Outpatient (CLI) | payer OTHER, SELFPAY ==
--- NOTE | 2023-12-01 10:10 | DI.MG.S_ITS ---
BILATERAL DIGITAL DIAGNOSTIC MAMMOGRAM 3D/2D: 12/01/2023 CLINICAL: Left Breast lump. Baseline. No prior exams were available for comparison. Both breasts are heterogeneously dense, which may obscure small masses (category c / 51-75% glandular tissue). No significant masses, calcifications, or other findings are seen in either breast. IMPRESSION: INCOMPLETE: NEEDS ADDITIONAL IMAGING EVALUATION No mammographic evidence of malignancy. A targeted ultrasound is recommended and will immediately follow. Based on the Tyrer Cuzick model (a risk assessment model) the patient's lifetime risk is 14.7% and her 10 year risk is 0.8%. According to the ACR, ACS, and NCCN guidelines, an annual breast MRI exam along with mammogram is recommended if the patient's lifetime risk is 20% or greater. This exam was interpreted at Station ID: [id number]. NOTE: For mammograms, a report in lay terms will be sent to the patient. Approximately 15% of breast malignancies will not be visualized mammographically. In the management of a palpable breast mass, a negative mammogram must not discourage biopsy of a clinically suspicious lesion. Electronically Signed By: Hammad Holliday M.D. slc/:12/01/2023 11:00:38 ACR BI-RADS Category 0: Incomplete [id number]
--- NOTE | 2023-12-01 10:10 | DI.US.S_ITS ---
LIMITED ULTRASOUND OF LEFT BREAST AND AXILLA: 12/01/2023 CLINICAL: Palpable left breast lump. Comparison is made to exam dated: 12/01/2023 mammogram - [facility]. Color flow and real-time ultrasound of the left breast 1 o'clock, and axilla regions were performed. Sheridan scale images of the real-time examination were reviewed. There is a benign 0.5 cm oval cyst in the left breast at 1 o'clock posterior depth 10 cm from the nipple. This oval cyst is hypoechoic. This correlates as palpated. Color flow imaging demonstrates that there is an adjacent vascularity. IMPRESSION: BENIGN There is no sonographic evidence of malignancy. The 0.5 cm oval cyst in the left breast is consistent with a sebaceous cyst and is benign. Exam findings were conveyed to the patient. Patient is advised to monitor for significant change. Clinical follow-up as needed. This exam was interpreted at Station ID: [id number]. Electronically Signed By: Hammad Holliday M.D. slc/:12/01/2023 11:25:04 letter sent: Normal Exam Ultrasound BI-RADS: 2 Benign
== END ==
LOC: MAMMO 10:10
PROVIDERS: PCP Nurse Practitioner; Referring Provider Nurse Practitioner; Visit Provider Nurse Practitioner
DX: N63.20 Unspecified lump in the left breast, unspecified quadrant (principal); R92.333 Mammographic heterogeneous density, bilateral breasts; R92.2 Inconclusive mammogram; N60.02 Solitary cyst of left breast
CPT/HCPCS: 76642; 77066; G0279

== ENCOUNTER → 2024-06-30 15:02 | Outpatient (CLI) | payer OTHER, SELFPAY ==
--- NOTE | 2024-06-30 15:07 | DI.US.S_ITS ---
PROCEDURE: US OB <= 14 WEEKS FETUS INDICATIONS: dating and viability OUTSIDE/PRIOR DATING DATA: Last menstrual period (LMP): 04/12/24 LMP-based estimated date of delivery (BAMBI): 01/17/25. First dating scan (date and location): This study. Estimated date of delivery (BAMBI) from first dating scan: 01/19/25. The calculations are made using the above BAMBI. TECHNIQUE: Real-time scanning was performed of the fetus and maternal pelvic organs, with image documentation. Endovaginal scanning was also performed to better visualize the fetus and maternal ovaries. COMPARISON: [facility], , OB <= 14 WEEKS FETUS, 06/18/2021, 8:39. FINDINGS: Embryo: Single living intrauterine gestation with crown-rump length 4.2 cm correlates with a gestational age of 11 weeks 0 days Heart rate: 173 beats per minute Maternal organs: Ovaries normal considering gestational status. IMPRESSION: Early 1st trimester gestational, viable, with delivery date projected to be centered on 01/19/25, +/-5 days. We strive to produce accurate, complete, and clear reports of imaging services. To assist us in improving patient care, this report was composed using standard report templates and voice recognition software. Therefore, it may contain abnormal punctuation, insertions and/or omissions. Occasional wrong-word or sound-alike substitutions may occur. Though we review the report and make efforts to correct it, we do recommend that the report be read carefully in proper context to recognize any text inaccuracies. Dictated by: Manohar Rodríguez M.D. on 06/30/2024 at 16:34 Approved by: Manohar Rodríguez M.D. on 06/30/2024 at 16:43
== END ==
LOC: US 15:06
PROVIDERS: PCP Nurse Practitioner; Referring Provider Family Medicine; Visit Provider Family Medicine
DX: Z34.81 Encounter for supervision of other normal pregnancy, first trimester (principal); Z3A.11 11 weeks gestation of pregnancy
CPT/HCPCS: 76801

== ENCOUNTER → 2024-06-30 15:38 | Outpatient (CLI) | payer OTHER, SELFPAY ==
[2024-06-30 16:15] LABS: Add Manual Diff / Slide Review NO; Basophils Absolute Auto 0 /uL (0-100); Basophils Percent Auto 0.3 % (0-2); Eosinophils Absolute Auto 100 /uL (0-450); Eosinophils Percent Auto 0.4 % (2-4); Hematocrit 38.4 % (36-46); Lymphocytes Absolute Auto 2000 /uL (1100-4500); Lymphocytes Percent Auto 14.7 % (25-40); Mean Corpuscular Volume 88.1 fL (80-100); Monocytes Absolute Auto 800 /uL (0-900); Neutrophils Absolute Auto 10900 /uL (1500-7000); Neutrophils Percent Auto 78.6 % (50-75); Platelet Count 209 X10^3/uL (150-400); Red Blood Cell Count 4.35 X10^6/uL (4.0-5.2); Red Cell Distribution Width 12.8 % (11.6-14.8); White Blood Cell Count 13.9 X10^3/uL (4.5-11.0)
[2024-06-30 16:19] LABS: Appearance Urine UA CLEAR; Bilirubin Urine UA NEGATIVE (NEGATIVE); Color Urine UA YELLOW; Glucose Urine UA NEGATIVE (Negative); Ketones Urine UA NEGATIVE (NEGATIVE); Leukocyte Esterase Urine UA NEGATIVE (NEGATIVE); Nitrite Urine UA NEGATIVE (Negative); Occult Blood Urine UA NEGATIVE (Negative); Protein Urine UA NEGATIVE (Negative); Specific Gravity Urine UA <=1.005 (1.000-1.035); Urobilinogen Urine UA 0.2 E.U./dL (0.2)
[2024-06-30 17:29] LABS: Free T4, Direct Thyroxine 0.94 ng/dL (0.78-2.19)
[2024-07-01 06:36] LABS: RPR Screen Non Reactive (Non Reactive)
[2024-07-01 08:11] LABS: Varicella IgG Antibody Reactive (Non Reactive)
[2024-07-03 15:53] LABS: Hepatitis B Surface Antigen NEGATIVE s/c (NEGATIVE); Rubella Antibody IgG 65.5 IU/mL (>15)
[2024-07-03 16:10] LABS: HIV 1 & 2 Ab/Ag 4th Gen Combo NEGATIVE (NEGATIVE); Hep C Virus Ab w/Reflex Quant NEGATIVE s/c (NEGATIVE)
== END ==
PROVIDERS: PCP Nurse Practitioner; Referring Provider Family Medicine; Visit Provider Family Medicine
DX: Z34.81 Encounter for supervision of other normal pregnancy, first trimester (principal); Z3A.11 11 weeks gestation of pregnancy
CPT/HCPCS: 36415; 76801; 80055; 81003; 84439; 84443; 86787; 86803; 86850; 86900; 86901; 87086; 87389

== ENCOUNTER → 2024-08-04 16:20 | Outpatient (CLI) | payer OTHER, SELFPAY ==
[2024-08-04 18:00] LABS: Natera Collection Specimen Collected
== END ==
PROVIDERS: PCP Family Medicine; Referring Provider Family Medicine; Visit Provider Family Medicine
DX: R53.83 Other fatigue (principal)
CPT/HCPCS: 36415

== ENCOUNTER → 2024-08-30 14:07 | Outpatient (CLI) | payer OTHER, SELFPAY ==
--- NOTE | 2024-08-30 14:08 | DI.US.S_ITS ---
PROCEDURE: US OB >= 14 WEEKS FETUS INDICATIONS: anatomy US OUTSIDE/PRIOR DATING DATA: Last menstrual period (LMP): 04/12/2024. LMP-based estimated date of delivery (BAMBI): 01/17/2025. First dating scan (date and location): 06/30/2024. Estimated date of delivery (BAMBI) from first dating scan: 01/19/2025. The calculations are made using the clinical BAMBI of 01/17/2025. TECHNIQUE: Real-time scanning was performed of the fetus, with image documentation and biometric measurements. Endovaginal scanning: Not performed COMPARISON: [facility], OB <= 14 WEEKS FETUS, 06/30/2024, 15:13. [facility], , OB >= 14 WEEKS FETUS, 12/23/2021, 9:38. FINDINGS: General: A single living intrauterine gestation is present. Presentation: Vertex. Placenta: Placental position is anterior, without previa. Amniotic fluid index: 13.1 cm, normal range is 5-24 cm. Single deepest vertical pocket is 4.5 cm. heart rate: 158 beats per minute. Maternal cervical canal: 4 cm long. Normal lower limit is 2.5 cm. biometrics: Biparietal diameter: 4.7 cm, 20 weeks 1 day Head circumference: 17.2 cm, 19 weeks 6 days Abdominal circumference: 14.1 cm, and 19 weeks 3 days Femur length: 3 cm, 19 weeks 3 days Clinically estimated gestational age: 20 weeks 0 days Composite gestational age from present scan: 19 weeks 5 days Estimated weight and percentile: 295 g, 20th percentile Anatomic survey: Neuro: Ventricles are non-dilated at less than 10 mm. Cisterna magna is normal at 3-11 mm. Cerebellum is normal in size and morphology. Nuchal skin fold: Normal at less than 6 mm between 14-21 weeks gestational age. Face: Nose and lips, facial profile are normal. Spine: No evidence for spina bifida. Heart: 4-chambered heart is present, with normal ventricular outflow tracts. Diaphragm: Diaphragm is intact. Stomach: Left-sided stomach is present. Kidneys: Right renal pelvis measures 6.6 mm. Left renal pelvis measures 4.3 mm. Normal is less than 5 mm in 2nd trimester, less than 7 mm in 3rd trimester. Cord: 3-vessel cord has orthotopic insertion. Bladder: Normal in size. Extremities: All 4 extremities identified. IMPRESSION: 1. Butler living intrauterine at 19 weeks 5 days based on today's ultrasound. Fetus is in the 20 percentile for weight. 2. Normal placenta and amniotic fluid. 3. Dilated right renal pelvis. Otherwise normal anatomic survey. Recommend follow-up OB ultrasound. We strive to produce accurate, complete, and clear reports of imaging services. To assist us in improving patient care, this report was composed using standard report templates and voice recognition software. Therefore, it may contain abnormal punctuation, insertions and/or omissions. Occasional wrong-word or sound-alike substitutions may occur. Though we review the report and make efforts to correct it, we do recommend that the report be read carefully in proper context to recognize any text inaccuracies. Dictated by: Hammad Holliday M.D. on 08/30/2024 at 17:26 Approved by: Hammad Holliday M.D. on 08/30/2024 at 17:32
== END ==
PROVIDERS: PCP Family Medicine; Referring Provider Family Medicine; Visit Provider Family Medicine
DX: Z34.80 Encounter for supervision of other normal pregnancy, unspecified trimester (principal); Z3A.19 19 weeks gestation of pregnancy
CPT/HCPCS: 76811

== ENCOUNTER → 2024-09-11 14:26 | Outpatient (ROUT) | payer OTHER, SELFPAY ==
[2024-09-11 14:35] LABS: Appearance Urine UA CLEAR; Bilirubin Urine UA NEGATIVE (NEGATIVE); Color Urine UA YELLOW; Glucose Urine UA NEGATIVE (Negative); Ketones Urine UA NEGATIVE (NEGATIVE); Leukocyte Esterase Urine UA NEGATIVE (NEGATIVE); Nitrite Urine UA NEGATIVE (Negative); Occult Blood Urine UA NEGATIVE (Negative); Protein Urine UA NEGATIVE (Negative); Specific Gravity Urine UA <=1.005 (1.000-1.035); Urine Volume 10mL (spun); Urobilinogen Urine UA 0.2 E.U./dL (0.2)
[2024-09-11 14:37] LABS: Bacteria Urine None Seen; Culture Indicated Urine Cult Not Indicated; RBC Urine None Seen (0-5/HPF); Squamous Epithelial Cell Urine None Seen (0-5/HPF); WBC Urine None Seen (0-5/HPF)
[2024-09-11 15:08] LABS: Creatinine Urine Random 10.92 mg/dL
[2024-09-11 15:13] LABS: Microalbumin Urine Random < 0.6 mg/dL (0-1.6)
== END ==
PROVIDERS: PCP Family Medicine; Visit Provider Family Medicine
DX: Z34.80 Encounter for supervision of other normal pregnancy, unspecified trimester (principal); R10.2 Pelvic and perineal pain
CPT/HCPCS: 81001; 82043; 82570

== ENCOUNTER → 2024-09-26 16:31 | Outpatient (CLI) | payer OTHER, SELFPAY ==
--- NOTE | 2024-09-26 16:32 | DI.US.S_ITS ---
PROCEDURE: US OB FOLLOW UP INDICATIONS: ob f/u OUTSIDE/PRIOR DATING DATA: Last menstrual period (LMP): 04/12/2024. LMP-based estimated date of delivery (BAMBI): 01/17/2025. First dating scan (date and location): 06/30/2024. Estimated date of delivery (BAMBI) from first dating scan: 01/19/2025. The calculations are made using the clinical BAMBI of 01/18/2024. TECHNIQUE: Real-time scanning was performed of the fetus, with image documentation and biometric measurements. COMPARISON: [facility], , OB >= 14 WEEKS FETUS, 08/30/2024, 14:16. FINDINGS: General: A single living intrauterine gestation is present. Presentation: Breech. Placenta: Placental position is anterior , without previa. Amniotic fluid index: 15.8 cm, normal range is 5-24 cm. Single deepest vertical pocket is 4.4 cm. heart rate: 149 beats per minute. Maternal cervical canal: 3 cm long. Normal lower limit is 2.5 cm. biometrics: Clinically estimated gestational age: 23 weeks 6 days Other: Slight prominence of the renal collecting system measuring 6.2 mm on the right and 4.3 mm on the left compared to initial measurements of 6.6 mm and 4.3 mm respectively. IMPRESSION: Single live intrauterine with gestational age of 23 weeks 6 days. DRAGAN is within normal limits. We strive to produce accurate, complete, and clear reports of imaging services. To assist us in improving patient care, this report was composed using standard report templates and voice recognition software. Therefore, it may contain abnormal punctuation, insertions and/or omissions. Occasional wrong-word or sound-alike substitutions may occur. Though we review the report and make efforts to correct it, we do recommend that the report be read carefully in proper context to recognize any text inaccuracies. Dictated by: Suzi Kelley M.D. on 09/27/2024 at 12:47 Approved by: Suzi Kelley M.D. on 09/27/2024 at 12:51
== END ==
PROVIDERS: PCP Family Medicine; Referring Provider Family Medicine; Visit Provider Family Medicine
DX: Z34.82 Encounter for supervision of other normal pregnancy, second trimester (principal); Z3A.23 23 weeks gestation of pregnancy
CPT/HCPCS: 76816

== ENCOUNTER → 2024-09-29 11:22 | Outpatient (CLI) | payer OTHER, SELFPAY ==
[2024-09-29 14:49] LABS: Hematocrit 39.7 % (36-46); Hemoglobin 13.3 g/dL (12.0-16.0); Mean Corpuscular HGB Conc 33.6 % (30-36); Mean Corpuscular Hemoglobin 29.7 PG (26-34); Mean Corpuscular Volume 88.4 fL (80-100); Platelet Count 212 X10^3/uL (150-400); Red Blood Cell Count 4.49 X10^6/uL (4.0-5.2); Red Cell Distribution Width 13.3 % (11.6-14.8); White Blood Cell Count 11.9 X10^3/uL (4.5-11.0)
[2024-09-29 15:26] LABS: GTT (PREG) 1 Hour PP 50gm Dose 158 mg/dL (76-139)
[2024-09-29 17:49] LABS: HEMOLYSIS < 15 (0-50); Iron 81 ug/dL (37-170)
[2024-09-29 17:50] LABS: Alanine Aminotransferase 19 IU/L (<35); Albumin 4.1 g/dL (3.5-5.0); Albumin Globulin Ratio 1.6 (1.0-2.8); Alkaline Phosphatase 81 U/L (38-126); Aspartate Aminotransferase 21 IU/L (14-36); BUN Creatinine Ratio 13.7 (6-22); Bilirubin Total 0.3 mg/dL (0.2-1.3); Blood Urea Nitrogen 7 mg/dL (7-17); Calcium 9.4 mg/dL (8.4-10.2); Carbon Dioxide 20 mmol/L (22-32); Chloride 104 mmol/L (98-107); Estimated Glomerular Filt Rate > 60 mL/min (>60); Globulin 2.6 g/dL (1.7-4.1); Glucose 159 mg/dL (70-100); HEMOLYSIS < 15 (0-50); Sodium 134 mmol/L (137-145); Total Protein 6.7 g/dL (6.3-8.2)
[2024-09-29 18:00] LABS: Percent Iron Saturation 25 % (15-50); Total Iron Binding Capacity 329 ug/dL (265-497); Transferrin 320 mg/dL (206-381)
[2024-09-29 18:25] LABS: Ferritin 101 ng/mL (6-137)
== END ==
PROVIDERS: PCP Family Medicine; Referring Provider Family Medicine; Visit Provider Family Medicine
DX: Z34.80 Encounter for supervision of other normal pregnancy, unspecified trimester (principal); R51.9 Headache, unspecified; R53.83 Other fatigue
CPT/HCPCS: 36415; 80053; 82728; 82950; 83540; 83550; 85027

== ENCOUNTER → 2024-10-16 08:01 | Outpatient (CLI) | payer OTHER, SELFPAY ==
[2024-10-16 10:02] LABS: Glucose Fasting Gestational 96 mg/dL (76-95)
[2024-10-16 10:50] LABS: Glucose 1 Hour Gest 161 mg/dL (76-180)
[2024-10-16 11:44] LABS: Glucose 2 Hour Gest 149 mg/dL (76-155)
[2024-10-16 13:21] LABS: Glucose Tol Interp,Gestational INTERPRETATION
[2024-10-16 13:27] LABS: Glucose 3 Hour Gest 134 mg/dL (76-140)
== END ==
PROVIDERS: PCP Family Medicine; Referring Provider Family Medicine; Visit Provider Family Medicine
DX: Z34.80 Encounter for supervision of other normal pregnancy, unspecified trimester (principal)
CPT/HCPCS: 36415; 82951; 82952

== ENCOUNTER 2024-12-12 02:15 | Observation (INO) | payer OTHER, SELFPAY ==
[2024-12-12 03:04] VITALS: BP 135/81; PULSE 71
[2024-12-12] MEDS: NIFEdipine 10 MG CAPSULE PO ×4 (03:04→04:11)
[2024-12-12] MEDS: LABETALOL 100 MG TABLET PO (03:04)
[2024-12-12 03:22] LABS: Add Manual Diff / Slide Review NO; Basophils Absolute Auto 100 /uL (0-100); Basophils Percent Auto 0.6 % (0-2); Eosinophils Absolute Auto 0 /uL (0-450); Eosinophils Percent Auto 0.3 % (2-4); Hematocrit 42.7 % (36-46); Hemoglobin 14.8 g/dL (12.0-16.0); Lymphocytes Absolute Auto 2400 /uL (1100-4500); Lymphocytes Percent Auto 18.5 % (25-40); Mean Corpuscular HGB Conc 34.7 % (30-36); Mean Corpuscular Hemoglobin 30.4 PG (26-34); Mean Corpuscular Volume 87.8 fL (80-100); Monocytes Absolute Auto 1000 /uL (0-900); Monocytes Percent Auto 7.9 % (3-14); Neutrophils Absolute Auto 9400 /uL (1500-7000); Neutrophils Percent Auto 72.7 % (50-75); Platelet Count 180 X10^3/uL (150-400); Red Blood Cell Count 4.86 X10^6/uL (4.0-5.2); Red Cell Distribution Width 13.1 % (11.6-14.8); White Blood Cell Count 12.9 X10^3/uL (4.5-11.0)
[2024-12-12 03:24] LABS: Alanine Aminotransferase 46 IU/L (<35); Albumin 3.9 g/dL (3.5-5.0); Albumin Globulin Ratio 1.3 (1.0-2.8); Alkaline Phosphatase 157 U/L (38-126); Aspartate Aminotransferase 41 IU/L (14-36); BUN Creatinine Ratio 16.9 (6-22); Bilirubin Total 0.4 mg/dL (0.2-1.3); Blood Urea Nitrogen 10 mg/dL (7-17); Calcium 9.7 mg/dL (8.4-10.2); Carbon Dioxide 20 mmol/L (22-32); Chloride 104 mmol/L (98-107); Estimated Glomerular Filt Rate > 60 mL/min (>60); Glucose 109 mg/dL (70-99); HEMOLYSIS < 15 (0-50); Potassium 3.8 mmol/L (3.4-5.1); Sodium 135 mmol/L (137-145); Total Protein 6.9 g/dL (6.3-8.2); Uric Acid 6.6 mg/dL (2.5-6.2)
[2024-12-12 04:02] LABS: Creatinine Urine Random 218.93 mg/dL
[2024-12-12 04:04] LABS: Protein (Total) Urine Random < 5 mg/dL (0-12); Protein Creatinine Ratio Urine 0.02 GRAM/24H
[2024-12-12] MEDS: ONDANSETRON 4 MG/2 ML INJ IV (04:13)
[2024-12-12] MEDS: ACETAMINOPHEN 325 MG TABLET 650 MG PO (04:33)
[2024-12-12] MEDS: OXYCODONE IR 5 MG TABLET PO (04:33)
[2024-12-12] MEDS: LACTATED RINGERS 1,000 ML 1000 ML IV (04:34)
--- NOTE | 2024-12-12 19:13 | PM.OBTRLD ---
Visit Information Visit Information Date of evaluation: 12/12/24 Primary OB Provider: Shahrzad Hong On-call OB Provider: Keli Crandall Comments/Additional reasons for admission: Patient is a 33 year old at 34+6 wks gestation who presents with a persistent BAHENA and hand swelling. No visual changes. Good FM. No LOF/VB or ctx's. Patient received Nifedipine for contractions and one dose of Labetolol 100mg PO. She also received IVF's and a dose of oxycodone. The BAHENA improved and the contractions spaced. COUNT INCLUDES THE [facility] Medical History (Updated 06/29/24 @ 13:13 by Catherine Malhotra RN) Migraine without aura Exclusive by mother Dyspareunia Laceration of finger Acne (~2001) Headache (~1997) Chicken pox (~1992) Surgical History H/O wisdom tooth extraction (~2008) Anesthesia History of plastic surgery (~1991) Family History (Updated 06/29/24 @ 13:20 by Catherine Malhotra RN) Brother Hypertension Depression Substance abuse Mother Autoimmune disease Father Healthy adult Grandmother Cancer Grandfather Healthy adult Grandmother Family history unknown Grandfather No problems noted. 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) current occupational exposures/hazards: Yes Previous occupational history: exposure to covid gracie/nondenominational: None special gracie needs: No travel history: recent (domestic only) and other leisure activities: exercise seatbelt use: always helmet use: Yes water heater temp set < 120 deg: Yes working smoke detector in home: Yes fire extinguisher in home: Yes carbon monox detector in home: Yes firearms in home: No do you feel safe at home: Yes second hand exposure: Yes ( vapes, but not inside and close to ) alcohol intake: former (~4-5/week when not ) substance use type: does not use during the past year weight has: increased > 10 lbs well-balanced diet: daily or most days daily servings fruits/ve-4 caffeine: Yes (1 cup/tea) Type(s) of exercise: walking, bicycling and occasional exercise (bodyweight exercises and light weights @ [employer]) frequency: 1-2 times per week Exam Narrative Exam Narrative: Gen: NAD Ext: DTR 1-2+. Trace edema. Objective Labs 12/12/24 02:55 12/12/24 02:55 Labs: Laboratory Results - last 24 hr 12/12/24 12/12/24 02:55 03:29 WBC 12.9 H RBC 4.86 Hgb 14.8 Hct 42.7 MCV 87.8 MCH 30.4 MCHC 34.7 RDW 13.1 Plt Count 180 Neut % (Auto) 72.7 Lymph % (Auto) 18.5 L Schleicher % (Auto) 7.9 Eos % (Auto) 0.3 L Baso % (Auto) 0.6 Neut # (Auto) 9400 H Lymph # (Auto) 2400 Schleicher # (Auto) 1000 H Eos # (Auto) 0 Baso # (Auto) 100 Sodium 135 L Potassium 3.8 Chloride 104 Carbon Dioxide 20 L BUN 10 Creatinine 0.59 Estimated GFR > 60 BUN/Creatinine Ratio 16.9 Glucose 109 H Uric Acid 6.6 H Calcium 9.7 Total Bilirubin 0.4 AST 41 H ALT 46 H Alkaline Phosphatase 157 H Total Protein 6.9 Albumin 3.9 Globulin 3.0 Albumin/Globulin Ratio 1.3 U Random Total Protein < 5 Urine Creatinine 218.93 Protein/Creatinin Ratio 0.02 Evaluation Evaluation Baseline heart rate: 135 Variability: Average (6-10) monitor accelerations: Present Monitor Decelerations: Absent Contraction Frequency (minutes): 4 Uterine Contraction Intensity: Mild Category of Tracing: Reactive Status: Category l Diagnosis, Plan/Disposition Plan/Disposition Plan: Assessment: 33 year old at 34+6 wks gestation with Gest HTN Mildly elevated LFT's contractions, subsided Plan: Discharge to home F/U later this week with Dr. Hong S/S of PEC reviewed Started Labetolol 100mg BID OB Disposition: home
== END 2024-12-12 07:05 | disposition home or self-care (01) ==
LOC: LABOR 02:18
PROVIDERS: Admitting Provider Obstetrics & Gynecology; PCP Family Medicine; Referring Provider Obstetrics & Gynecology; Visit Provider Obstetrics & Gynecology
DX: O99.413 Diseases of the circulatory system complicating pregnancy, third trimester (principal); R51.9 Headache, unspecified; M79.89 Other specified soft tissue disorders; Z36.9 Encounter for antenatal screening, unspecified
CPT/HCPCS: 59025; 59050; 80053; 84550; 85025; 96360; G0378; G0379; J2405

== ENCOUNTER 2024-12-19 17:45 | Observation (INO) | payer OTHER, SELFPAY ==
[2024-12-19 18:18] LABS: Add Manual Diff / Slide Review NO; Basophils Absolute Auto 100 /uL (0-100); Basophils Percent Auto 0.5 % (0-2); Eosinophils Absolute Auto 100 /uL (0-450); Eosinophils Percent Auto 0.7 % (2-4); Hematocrit 40.9 % (36-46); Hemoglobin 13.8 g/dL (12.0-16.0); Lymphocytes Absolute Auto 2600 /uL (1100-4500); Lymphocytes Percent Auto 21.7 % (25-40); Mean Corpuscular HGB Conc 33.8 % (30-36); Mean Corpuscular Volume 88.8 fL (80-100); Monocytes Absolute Auto 900 /uL (0-900); Monocytes Percent Auto 7.9 % (3-14); Neutrophils Absolute Auto 8300 /uL (1500-7000); Neutrophils Percent Auto 69.2 % (50-75); Platelet Count 169 X10^3/uL (150-400); Red Cell Distribution Width 13.5 % (11.6-14.8)
[2024-12-19 18:29] LABS: Alanine Aminotransferase 41 IU/L (<35); Albumin 3.6 g/dL (3.5-5.0); Albumin Globulin Ratio 1.2 (1.0-2.8); Alkaline Phosphatase 127 U/L (38-126); Aspartate Aminotransferase 38 IU/L (14-36); Bilirubin Total 0.3 mg/dL (0.2-1.3); Blood Urea Nitrogen 16 mg/dL (7-17); Calcium 9.3 mg/dL (8.4-10.2); Carbon Dioxide 19 mmol/L (22-32); Chloride 106 mmol/L (98-107); Estimated Glomerular Filt Rate > 60 mL/min (>60); Glucose 125 mg/dL (70-99); HEMOLYSIS 15 (0-50); Sodium 135 mmol/L (137-145); Total Protein 6.6 g/dL (6.3-8.2); Uric Acid 8.5 mg/dL (2.5-6.2)
[2024-12-19 18:38] LABS: Appearance Urine UA CLEAR; Bilirubin Urine UA NEGATIVE (NEGATIVE); Color Urine UA YELLOW; Creatinine Urine Random 28.68 mg/dL; Glucose Urine UA NEGATIVE (Negative); Ketones Urine UA NEGATIVE (NEGATIVE); Leukocyte Esterase Urine UA NEGATIVE (NEGATIVE); Nitrite Urine UA NEGATIVE (Negative); Occult Blood Urine UA NEGATIVE (Negative); Protein (Total) Urine Random 11 mg/dL (0-12); Protein Creatinine Ratio Urine 0.38 GRAM/24H; Protein Urine UA NEGATIVE (Negative); Specific Gravity Urine UA <=1.005 (1.000-1.035); Urobilinogen Urine UA 0.2 E.U./dL (0.2)
[2024-12-19 18:43] LABS: Bacteria Urine Few (2-10); Culture Indicated Urine Cult Not Indicated; RBC Urine 0-1/HPF (0-5/HPF); Squamous Epithelial Cell Urine 1-5 /HPF (0-5/HPF); Urine Volume 10mL (spun); WBC Urine 0-1/HPF (0-5/HPF)
[2024-12-19] MEDS: NIFEdipine 30 MG TAB ER PO (19:40)
[2024-12-19] MEDS: BETAMETHASONE 30 MG/5 ML MDV 12 MG IM (19:40)
--- NOTE | 2024-12-19 20:02 | P.TNLD_ITS ---
Visit Information Visit Information Date of evaluation: 12/19/24 Primary OB Provider: Shahrzad Hong On-call OB Provider: Demetrius Tsai Reason for Evaluation: Yes non-stress test and Yes other Comments/Additional reasons for admission: 34 yo BAMBI 01[birth year]25 presenting at 35+6 with relatively new onset gestational HTN requiring treatment with Labetalol recently increased to 200 mg PO TID. Labs have not yet supported a diagnosis of PEC but today she has had several borderline severe BP determinations today at home, bitemporal BAHENA, SOB, and blurred vision. She denies contractions and her baby remains active. She presents now to the for after-hours evaluation. [facility] Medical History (Updated 12/31/24 @ 18:03 by Demetrius Tsai MD) Hypertension affecting Migraine without aura Exclusive by mother Dyspareunia Laceration of finger Acne (~2001) Headache (~1997) Chicken pox (~1992) Surgical History H/O wisdom tooth extraction (~2008) Anesthesia History of plastic surgery (~1991) Family History (Updated 06/29/24 @ 13:20 by Catherine Malhotra RN) Brother Hypertension Depression Substance abuse Mother Autoimmune disease Father Healthy adult Grandmother Cancer Grandfather Healthy adult Grandmother Family history unknown Grandfather No problems noted. 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) current occupational exposures/hazards: Yes Previous occupational history: exposure to covid gracie/yarsani: None special gracie needs: No travel history: recent (domestic only) and other leisure activities: exercise seatbelt use: always helmet use: Yes water heater temp set < 120 deg: Yes working smoke detector in home: Yes fire extinguisher in home: Yes carbon monox detector in home: Yes firearms in home: No do you feel safe at home: Yes second hand exposure: Yes ( vapes, but not inside and close to ) alcohol intake: former (~4-5/week when not ) substance use type: does not use during the past year weight has: increased > 10 lbs well-balanced diet: daily or most days daily servings fruits/ve-4 caffeine: Yes (1 cup/tea) Type(s) of exercise: walking, bicycling and occasional exercise (bodyweight exercises and light weights @ mommy [employer] group) frequency: 1-2 times per week Review of Systems Review of Systems Narrative: Problem-specific ROS positives included in HPI Objective Labs 12/19/24 18:00 12/19/24 18:00 Labs: Laboratory Results - last 24 hr 12/19/24 18:00 WBC 12.0 H RBC 4.60 Hgb 13.8 Hct 40.9 MCV 88.8 MCH 30.0 MCHC 33.8 RDW 13.5 Plt Count 169 Neut % (Auto) 69.2 Lymph % (Auto) 21.7 L [place] % (Auto) 7.9 Eos % (Auto) 0.7 L Baso % (Auto) 0.5 Neut # (Auto) 8300 H Lymph # (Auto) 2600 [place] # (Auto) 900 Eos # (Auto) 100 Baso # (Auto) 100 Sodium 135 L Potassium 4.0 Chloride 106 Carbon Dioxide 19 L BUN 16 Creatinine 0.80 Estimated GFR > 60 BUN/Creatinine Ratio 20.0 Glucose 125 H Uric Acid 8.5 H Calcium 9.3 Total Bilirubin 0.3 AST 38 H ALT 41 H Alkaline Phosphatase 127 H Total Protein 6.6 Albumin 3.6 Globulin 3.0 Albumin/Globulin Ratio 1.2 Urine Color Yellow Urine Appearance Clear Urine pH 6.0 Ur Specific [place] <=1.005 Urine Protein Negative Urine Glucose (UA) Negative Urine Ketones Negative Urine Occult Blood Negative Urine Nitrate Negative Urine Bilirubin Negative Urine Urobilinogen 0.2 Ur Leukocyte Esterase Negative Urine RBC 0-1/hpf Urine WBC 0-1/hpf Ur Squamous Epith Cells 1-5 /hpf Urine Bacteria Few (2-10) H Ur Culture Indicated? Cult not indicated Vol Urine Centrifuged 10ml (spun) U Random Total Protein 11 Urine Creatinine 28.68 Protein/Creatinin Ratio 0.38 Evaluation Evaluation Baseline heart rate: 140 Variability: Moderate (11-25) monitor accelerations: Present Monitor Decelerations: Absent Status: Category l Diagnosis, Plan/Disposition Final Diagnosis (1) Pre-eclampsia affecting , antepartum: Status: Acute Plan/Disposition Plan: Patient's blood pressure while under observation in the center has largely return to mild elevation levels, patient meets criteria for preeclampsia, at this point without severe features but her laboratory studies and clinical symptoms are deeply concerning that she may require delivery . Will add nifedipine 30 mg extended release b.i.d. to her current regimen of labetalol 200 t.i.d. and administer 1st dose of betamethasone 12 mg IM with a follow-up injection in 24 hours. At that time she will return to the center for re- evaluation given the high probability that her preeclampsia will progressively worsened to the point where she will require expedited delivery. Patient has been counseled extensively regarding signs and symptoms of severe blood pressure elevation and she will maintain a regimen strict bed rest for the next 24 hours. She will return to the center for re-evaluation and also be evaluated by her primary obstetrical provider at that time with expedited delivery if required in the next few days.
== END 2024-12-19 20:01 | disposition home or self-care (01) ==
LOC: LABOR 17:48
PROVIDERS: Admitting Provider Obstetrics & Gynecology; PCP Family Medicine; Referring Provider Obstetrics & Gynecology; Visit Provider Obstetrics & Gynecology
DX: O14.03 Mild to moderate pre-eclampsia, third trimester (principal); Z3A.35 35 weeks gestation of pregnancy
CPT/HCPCS: 59025; 59050; 80053; 81001; 84550; 85025; 96372; G0378; G0379; J0702

== ENCOUNTER 2024-12-20 14:57 | Inpatient (IN) | payer OTHER, SELFPAY ==
[2024-12-20] VITALS (9 sets, daily range): BP systolic 129–148; BP diastolic 58–88; PULSE 91–98; RESP 12–16; TEMP 36.6–36.7; O2SAT 97–99
[2024-12-20 15:35] LABS: Add Manual Diff / Slide Review NO; Basophils Absolute Auto 100 /uL (0-100); Basophils Percent Auto 0.4 % (0-2); Eosinophils Absolute Auto 100 /uL (0-450); Eosinophils Percent Auto 0.6 % (2-4); Hematocrit 40.3 % (36-46); Hemoglobin 13.7 g/dL (12.0-16.0); Lymphocytes Absolute Auto 1600 /uL (1100-4500); Lymphocytes Percent Auto 6.4 % (25-40); Mean Corpuscular HGB Conc 33.9 % (30-36); Mean Corpuscular Hemoglobin 30.2 PG (26-34); Mean Corpuscular Volume 88.9 fL (80-100); Monocytes Absolute Auto 1300 /uL (0-900); Monocytes Percent Auto 5.2 % (3-14); Neutrophils Absolute Auto 21300 /uL (1500-7000); Neutrophils Percent Auto 87.4 % (50-75); Platelet Count 129 X10^3/uL (150-400); Red Blood Cell Count 4.53 X10^6/uL (4.0-5.2); Red Cell Distribution Width 13.5 % (11.6-14.8); White Blood Cell Count 24.4 X10^3/uL (4.5-11.0)
[2024-12-20] MEDS: BETAMETHASONE 30 MG/5 ML MDV 12 MG IM (15:47)
[2024-12-20] MEDS: BUTALB/APAP/CAFFEINE 50/325/40 TABLET 1 EACH PO (15:47)
[2024-12-20 15:49] LABS: Alanine Aminotransferase 54 IU/L (<35); Albumin 4.1 g/dL (3.5-5.0); Albumin Globulin Ratio 1.4 (1.0-2.8); Alkaline Phosphatase 159 U/L (38-126); Aspartate Aminotransferase 50 IU/L (14-36); BUN Creatinine Ratio 20.9 (6-22); Bilirubin Total 0.4 mg/dL (0.2-1.3); Blood Urea Nitrogen 14 mg/dL (7-17); Calcium 9.5 mg/dL (8.4-10.2); Carbon Dioxide 16 mmol/L (22-32); Chloride 106 mmol/L (98-107); Estimated Glomerular Filt Rate > 60 mL/min (>60); Glucose 116 mg/dL (70-99); HEMOLYSIS < 15 (0-50); Potassium 4.3 mmol/L (3.4-5.1); Sodium 133 mmol/L (137-145); Total Protein 7.1 g/dL (6.3-8.2)
--- NOTE | 2024-12-20 18:03 | PM.OBHP.IH.1 ---
OB HPI Date/Time Date of admission: 12/20/24 Date Patient Seen: 12/20/24 Time Patient Seen: 18:04 History of Present Condition Chief complaint: NST BAMBI Calculator Estimated Delivery Date Method Current WG Current Estimate 01/17/25 LMP (Uncertain) 36w 0d Other Estimates 01/19/25 Ultrasound #1 35w 5d Estimated Gestational Age (weeks): 36w0d : 2 Para: 1 Narrative: 34-year-old who presented to clinic today with headache blurry vision setting of recent blood pressure elevations. One week ago she was seen in triage for headaches and hand swelling and blood pressures were found to be elevated. Urine PC was nml so she was dx with gHTN and started labetalol 100 b.i.d.. She was seen the next day in clinic and blood pressures were persistently elevated so she was increased to 200 mg b.i.d.. Two days later blood pressures continued to elevate so was increased to 200 t.i.d.. Yesterday she was seen in triage for headache, shortness of breath and blurry vision with home blood pressure readings elevated. Labs showed new development of elevated protein creatinine ratio to 0.38. LFTs were slightly elevated but down from previous check a few days prior. Platelets normal at that time. Nifedipine 30 mg b.i.d. was added to her regimen due to persistently elevated blood pressures. She was seen today in clinic due to development of a severe headache and continued elevated blood pressures. BP 148/86 in clinic so patient is sent to labor and delivery for evaluation. She was given Fioricet for headache which has not improved the headache. Labs were drawn and showed downtrending platelets and up trending LFTs. Blood pressures remain in the 130-140 range systolic over 80-90 range diastolic. care: good care Dating criteria OB: LMP confirmed by 1st trimester US Ultrasounds: abnormal US findings ( Anatomy ultrasound showing dilated renal pelvises, slight prominent of renal collecting system which was persistent. Referred to [facility]) Obstetrical complications: gestational hypertension Medical complications OB: none Indications Indication for induction OB: gestational HTN/pre-eclampsia Preadmission Labs Last OB Lab Results: Blood Type O Positive 12/20/24 18:30 Antibody Screen Negative 12/20/24 18:30 Hct 40.3 % (36-46) 12/20/24 15:23 Hgb 13.7 g/dL (12.0-16.0) 12/20/24 15:23 Hep Bs Antigen Negative s/c (NEGATIVE) 06/30/24 15:52 Hepatitis C Antibody Negative s/c (NEGATIVE) 06/30/24 15:52 Rubella Antibody 65.5 IU/mL (>15) 06/30/24 15:52 VZV IgG Antibody Reactive (Non Reactive) 06/30/24 15:52 Glucose 1 Hr 50 gm 158 mg/dL (76-139) H 09/29/24 11:52 Group B Strep (PCR) Neg for grp b strep 12/09/21 16:48 External Labs Narrative: 1st Trimester: PAP- last pap 10/2023, NIL w/ neg HPV labs- RPR- non-reactive ? Rubella- immune ? VZV- reactive ? Hep C- negative ? Hep B- neg ? HIV- neg ? UA- normal, protien neg Hgb- 13.0 T&S -O positive / Ab negative --> no RHogam GC/CHl- CMP for migraines- nml LFTs Prior (ies) Past Pregnancies Del. Date GA/Weeks Labor Lgth Wt Sex Route Outcome Anesthesia Place Delv Breastfeed Preg Comp Name 12/26/21 38.3 6 lb 3.9 oz Male live - full term [facility] still going as of Jun 2024 intrauterine growth restr [facility] Delivery Date: 12/26/21 Last Updated by: Keli Crandall MD Breech Evaluation Evaluation Baseline heart rate: 130 Variability: Moderate (11-25) monitor accelerations: Present Monitor Decelerations: Absent Contraction Frequency (minutes): 5 (irregular, pt not feeling them ) Category of Tracing: Reactive Status: Category l PFSH Medical History (Updated 12/14/24 @ 11:27 by Shahrzad Hong MD) Hypertension affecting Migraine without aura Exclusive by mother Dyspareunia Laceration of finger Acne (~2001) Headache (~1997) Chicken pox (~1992) Surgical History H/O wisdom tooth extraction (~2008) Anesthesia History of plastic surgery (~1991) Family History (Updated 06/29/24 @ 13:20 by Catherine Malhotra RN) Brother Hypertension Depression Substance abuse Mother Autoimmune disease Father Healthy adult Grandmother Cancer Grandfather Healthy adult Grandmother Family history unknown Grandfather No problems noted. 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) current occupational exposures/hazards: Yes Previous occupational history: exposure to covid gracie/tenriism: None special gracie needs: No travel history: recent (domestic only) and other leisure activities: exercise seatbelt use: always helmet use: Yes water heater temp set < 120 deg: Yes working smoke detector in home: Yes fire extinguisher in home: Yes carbon monox detector in home: Yes firearms in home: No do you feel safe at home: Yes second hand exposure: Yes ( vapes, but not inside and close to ) alcohol intake: former (~4-5/week when not ) substance use type: does not use during the past year weight has: increased > 10 lbs well-balanced diet: daily or most days daily servings fruits/ve-4 caffeine: Yes (1 cup/tea) Type(s) of exercise: walking, bicycling and occasional exercise (bodyweight exercises and light weights @ mom[employer] and [employer] group) frequency: 1-2 times per week Meds Home Medications and Allergies Home Medications Medication Instructions Recorded Confirmed Type an462-[id number] acid 1 tab PO .QD 11/02/23 12/20/24 History [ Multi] amitriptyline 10 mg tablet 10 mg PO DAILY #90 tabs 01/13/24 12/20/24 Rx omega 5-tvj-vlo-fish oil 1,000 mg 2 cap PO BID 06/29/24 12/20/24 History (120 mg-180 mg) capsule (Fish Oil) aluminum-mag hydroxide-simethicone 5 ml PO ONCE 11/24/24 12/20/24 History 200 mg-200 mg-20 mg/5 mL oral susp cyclobenzaprine 5 mg tablet 5 mg PO TID PRN muscle spasm #30 12/08/24 12/20/24 Rx tabs labetalol 100 mg tablet 100 mg PO BID #30 tabs 12/12/24 12/20/24 Rx labetalol 200 mg tablet 200 mg PO BID #30 tabs 12/14/24 12/20/24 Rx nifedipine 30 mg tablet,extended 30 mg PO BID #20 tabs 12/19/24 12/20/24 Rx release Allergies Allergy/AdvReac Type Severity Reaction Status Date / Time amoxicillin Allergy Intermediate hives Verified 12/08/24 10:40 Sulfa (Sulfonamide AdvReac Intermediate hives Verified 12/08/24 10:40 Antibiotics) OB Exam Vital signs Blood Pressure: 148/82 Pulse Rate: 98 Narrative Exam Narrative: BPS:141/85, 130/90, 136/88, 158/93, 159/90, 146/87, 148/82 GEN: Healthy appearing, well-developed, NAD. PSYCH: Good Judgment. AOx3. Normal memory, mood, and affect HEENT: -Head: NC/AT -Eyes: No discharge or redness CV: warm and well perfused LUNGS: breathing comfortably on RA SKIN: Warm, well perfused. No skin rashes or abnormal lesions MSK: 2+ Edema present in hands and feet. patellar DTR 2+ NEURO: No focal deficits Objective Labs 12/20/24 15:23 12/20/24 15:23 Labs: Laboratory Results - last 24 hr 12/20/24 15:23 WBC 24.4 H D RBC 4.53 Hgb 13.7 Hct 40.3 MCV 88.9 MCH 30.2 MCHC 33.9 RDW 13.5 Plt Count 129 L Neut % (Auto) 87.4 H Lymph % (Auto) 6.4 L [place] % (Auto) 5.2 Eos % (Auto) 0.6 L Baso % (Auto) 0.4 Neut # (Auto) 05200 H Lymph # (Auto) 1600 [place] # (Auto) 1300 H Eos # (Auto) 100 Baso # (Auto) 100 Sodium 133 L Potassium 4.3 Chloride 106 Carbon Dioxide 16 L BUN 14 Creatinine 0.67 Estimated GFR > 60 BUN/Creatinine Ratio 20.9 Glucose 116 H Calcium 9.5 Total Bilirubin 0.4 AST 50 H ALT 54 H Alkaline Phosphatase 159 H Total Protein 7.1 Albumin 4.1 Globulin 3.0 Albumin/Globulin Ratio 1.4 Assessment and Plan Assessment and Plan Assessment and Plan narrative: 34-year-old [id number] at 36w0d with elevated BPs despite increasing antihypertensives, intractable BAHENA and blurry vision in the setting of recent dx with Pre-E meeting criteria for Pre-e wtih SF. LFTs also uptrending and plts downtrending raising concern for HELLP. FHT reassuring. Pt is s/p BMZ x2, second dose given this afternoon. - Admit to LD - Repeat CS, awaaiting OR availability - neurology hospitalist building construction superintendent notified, will be at delivery - Ancef for surgical ppx - Start Mag 6g bolus with 2g/hr maintenance - TS - anesthesia consult Time-Based Coding :: [TOTAL MINUTES] spent with patient and on the chart (including review of chart, obtaining history, exam, reviewing outside data, placing orders, documenting exam and treatment plan, and counseling patient) on [DATE].
[2024-12-20] MEDS: LABETALOL 100 MG TABLET 200 MG PO (18:48)
[2024-12-20 19:05] LABS: RBC Morphology Normal Morphology; Toxic Granulation Present; Toxic Vacuolation Present
[2024-12-20] MEDS: MAGNESIUM SULFATE 4 GM/100 ML PIGGYBACK IV (19:13)
[2024-12-20] MEDS: LACTATED RINGERS 1,000 ML 999 ML IV (19:19)
[2024-12-20] MEDS: LACTATED RINGERS 1,000 ML 42 ML IV ×2 (19:19→22:23)
[2024-12-20] MEDS: MAGNESIUM SULFATE 20 GM/500 ML IV.SOLN IV (20:04)
[2024-12-20] MEDS: CITRIC ACID/SODIUM CITRATE 15 ML SOLUTION 30 ML PO (20:14)
[2024-12-20] MEDS: CEFAZOLIN 2 GM/100 ML PREMIX 100 ML IV (20:40)
--- NOTE | 2024-12-20 20:55 | SUR.OPER ---
Supine on Padded OR bed, head on pillow, safety belt at thigh, arms secured on padded arm boards at <90 degrees abduction. Bump under right buttock. Legs uncrossed with pillow under knees, gel pad to heels, tape over blanket to lower legs.
[2024-12-20] MEDS: ACETAMINOPHEN IV 1,000 MG/100 ML VIAL 400 MG IV (21:08)
[2024-12-20] MEDS: TRANEXAMIC ACID 1,000 MG in SODIUM CHLORIDE 0.9% 100 ML 200 MG IV (21:11)
[2024-12-20] MEDS: OXYTOCIN 10 UNIT/ML VIAL IM (21:11)
--- NOTE | 2024-12-20 21:48 | PM.OBCS.1 ---
Operative Date/Time/Diagnoses Date of procedure: 12/20/24 Time of procedure: 08:51 Pre-op diagnosis: Pre-eclampsia with SF, rising LFTs, history of prior CS Post-op diagnosis: same Procedure & Clinicians Procedure: unscheduled repeat LTCS Same procedure as scheduled: Yes Indications: previous pre-eclampsia with severe features uptrending LFTs Downtrending Plts Surgeon: Shahrzad Hong Click Yes if Unassisted: No Clinical Rehab Specialist: Sera Marc Reason for Clinical Rehab Specialist: Clinical Rehab Specialist required for the safe, effective, and timely completion of this surgery. The dam tender assistant was necessary to retract upon entry into the abdomen and uterus. Assisted with delivery of the infant with fundal pressure. Assisted with closure with retraction, holding suture, and closure of the contralateral fascia. Anesthesia Type: Epidural Operative Notes Findings: Normal uterus, ovaries, and tubes Closure Type: primary Specimen(s): cord blood and cord pH Intraoperative meds administered: Acetaminophen, Duramorph, Ketorolac, Pitocin (10u intrauterine ) and Tranexamic acid Applied: Catheter Estimated Blood Loss (mL): 600 Blood products transfused: none Procedure in detail: OPERATIVE COURSE: The patient was taken to the operating room where spinal anesthesia was placed. Ancef was administered for surgical ppx. She was then prepared and draped in the normal sterile fashion in the dorsal supine position with a leftward tilt. Anesthesia was tested and found to be adequate. A Pfannensteil skin incision was then made with the scalpel and carried through to the underlying layer of fascia with the bovie. The fascia was incised in the midline and the incision extended laterally with the Stephens scissors. The superior aspect of the fascial incision was then grasped with Jyothi clamps, elevated with the help of the surgical instrument repair specialist, and the underlying rectus muscles dissected off bluntly and sharply where needed. Attention was then turned to the inferior aspect of the incision which, in a similar fashion, was grasped, tented up with Jyothi clamps, and the rectus muscle dissected off bluntly and sharply with Stephens scissors. The rectus muscles were then in the midline, and the peritoneum was identified and entered bluntly. The peritoneal incision was then extended with good visualization of the bladder. Retraction was provided by the surgical instrument repair specialist. The bladder blade was then inserted and the vesicouterine peritoneum identified, grasped with pick-ups and entered sharply with the Metzenbaum scissors. The incision was then extended laterally and the bladder flap created digitally. The bladder blade was then reinserted and the lower uterine segment incised in a transverse fashion with the scalpel, with the surgical instrument repair specialist providing suction. The uterine incision was then extended superolaterally by pulling superolaterally on both sides. Membranes were ruptured and fluid was clear. The bladder blade was removed the 's head was flexed out of ALYSE position and delivered atraumatically, with fundal pressure by the surgical instrument repair specialist. The nose and mouth were suctioned with bulb suction and the cord was clamped and cut after a 60 second delay. The was handed off to the waiting nursing staff. Cord blood was collected. Time of delivery was 21:03. APGARS were 8 and 9 at one and five minutes respectively. The placenta was then delivered with gentle cord traction. The uterus was then exteriorized and cleared of all clots and debris. The uterine incision was repaired with 0 Vicryl in a running, locked fashion. The uterus was returned to the abdomen due to pt noting pain and pressure in the chest. TXA and 10u IU pit were given due to bleeding at hystrotomy. A second layer of the same suture was used to obtain excellent hemostasis. The gutters were cleared wtih a moist lap Hysterotomy was investigated and found to be hemostatic. Proclot was placed over the hysterotomy. The fascia was reapproximated with 0 Vicryl in a running fashion. The subcutaneous tissue was reapproximated with 3-0 vicryl. The skin was closed with 4-0 monocryl. The surgical instrument repair specialist helped with retraction during closures. SPONGE AND NEEDLE COUNTS: Correct x3. DRESSING: Aquacel ANTICOAGULATION: SCDs applied prior to Surgery Preop antibiotics given (see MAR). The patient was taken to recovery room having tolerated procedure well. Complications: other (difficulty pain control ) Russell Baby 1: Delivery Date: 12/20/24 Delivery Time: 21:03 Infant Gender: Female Presentation: vertex Position: Left Occiput Anterior Placental Delivery Description: Spontaneous Cord Vessel Description: 3 Vessels score (1 min): 8 score (5 min): 9 weight: 5 lb 4.128 oz Post-operative Condition: stable Disposition: PACU Aftercare: routine postop
[2024-12-20] MEDS: MEPERIDINE 50 MG/ML INJ 25 MG IV (21:58)
--- NOTE | 2024-12-20 22:13 | SUR.PHASEI ---
Pitocin 30mg IV infusion complete
--- NOTE | 2024-12-20 22:20 | SUR.PHASEI ---
Report called to Gaurav Ying.
[2024-12-20] MEDS: OXYCODONE IR 5 MG TABLET PO (22:29)
--- NOTE | 2024-12-20 22:40 | SUR.PHASEI ---
Patient transferred to the Center. Patient's fundus and dressing checked with Gaurav Ying RN. Condition stable.
[2024-12-21 01:28] LABS: Hematocrit 36.3 % (36-46); Hemoglobin 12.4 g/dL (12.0-16.0); Mean Corpuscular HGB Conc 34.1 % (30-36); Mean Corpuscular Hemoglobin 30.2 PG (26-34); Mean Corpuscular Volume 88.5 fL (80-100); Platelet Count 148 X10^3/uL (150-400); Red Blood Cell Count 4.11 X10^6/uL (4.0-5.2); Red Cell Distribution Width 13.8 % (11.6-14.8); White Blood Cell Count 28.8 X10^3/uL (4.5-11.0)
[2024-12-21 01:29] LABS: Add Manual Diff / Slide Review YES
[2024-12-21 01:36] LABS: Magnesium 4.7 mg/dL (1.6-2.3)
[2024-12-21 01:37] LABS: Alanine Aminotransferase 64 IU/L (<35); Albumin 3.2 g/dL (3.5-5.0); Albumin Globulin Ratio 1.1 (1.0-2.8); Alkaline Phosphatase 139 U/L (38-126); Aspartate Aminotransferase 64 IU/L (14-36); BUN Creatinine Ratio 16.1 (6-22); Bilirubin Total 0.4 mg/dL (0.2-1.3); Blood Urea Nitrogen 10 mg/dL (7-17); Calcium 8.1 mg/dL (8.4-10.2); Carbon Dioxide 15 mmol/L (22-32); Chloride 106 mmol/L (98-107); Estimated Glomerular Filt Rate > 60 mL/min (>60); Globulin 2.8 g/dL (1.7-4.1); Glucose 213 mg/dL (70-99); HEMOLYSIS < 15 (0-50); Potassium 3.9 mmol/L (3.4-5.1); Sodium 131 mmol/L (137-145)
[2024-12-21 02:02] LABS: Neutrophils Absolute Manual 27072 /uL (3000-5900); Total Cells Counted 100
[2024-12-21 02:03] LABS: Platelet Estimate Decreased on smear; RBC Morphology Normal Morphology
[2024-12-21] MEDS: KETOROLAC 30 MG/ML VIAL IV ×3 (03:42→16:28)
[2024-12-21] MEDS: ACETAMINOPHEN 325 MG TABLET 650 MG PO ×3 (05:04→17:37)
[2024-12-21] MEDS: diphenhydrAMINE 25 MG TABLET PO (05:29)
[2024-12-21] MEDS: OXYCODONE IR 5 MG TABLET PO ×3 (07:54→17:41)
[2024-12-21] MEDS: MAGNESIUM SULFATE 20 GM/500 ML IV.SOLN IV ×2 (07:57→17:42)
[2024-12-21 08:34] LABS: Add Manual Diff / Slide Review NO; Basophils Absolute Auto 0 /uL (0-100); Basophils Percent Auto 0.1 % (0-2); Eosinophils Absolute Auto 0 /uL (0-450); Hematocrit 38.5 % (36-46); Hemoglobin 12.9 g/dL (12.0-16.0); Lymphocytes Absolute Auto 1500 /uL (1100-4500); Lymphocytes Percent Auto 5.2 % (25-40); Mean Corpuscular HGB Conc 33.6 % (30-36); Mean Corpuscular Hemoglobin 29.9 PG (26-34); Mean Corpuscular Volume 89.1 fL (80-100); Monocytes Absolute Auto 900 /uL (0-900); Monocytes Percent Auto 3.2 % (3-14); Neutrophils Absolute Auto 27100 /uL (1500-7000); Neutrophils Percent Auto 91.5 % (50-75); Platelet Count 154 X10^3/uL (150-400); Red Blood Cell Count 4.32 X10^6/uL (4.0-5.2); Red Cell Distribution Width 13.6 % (11.6-14.8); White Blood Cell Count 29.6 X10^3/uL (4.5-11.0)
[2024-12-21 08:37] LABS: Alanine Aminotransferase 62 IU/L (<35); Albumin 3.6 g/dL (3.5-5.0); Albumin Globulin Ratio 1.3 (1.0-2.8); Alkaline Phosphatase 134 U/L (38-126); Aspartate Aminotransferase 62 IU/L (14-36); BUN Creatinine Ratio 12.7 (6-22); Bilirubin Total 0.3 mg/dL (0.2-1.3); Blood Urea Nitrogen 9 mg/dL (7-17); Calcium 7.4 mg/dL (8.4-10.2); Carbon Dioxide 19 mmol/L (22-32); Chloride 105 mmol/L (98-107); Estimated Glomerular Filt Rate > 60 mL/min (>60); Globulin 2.8 g/dL (1.7-4.1); Glucose 195 mg/dL (70-99); HEMOLYSIS < 15 (0-50); Potassium 4.1 mmol/L (3.4-5.1); Sodium 132 mmol/L (137-145); Total Protein 6.4 g/dL (6.3-8.2)
[2024-12-21 08:39] LABS: Magnesium 6.4 mg/dL (1.6-2.3)
--- NOTE | 2024-12-21 09:43 | PM.PNPO.1 ---
Subjective Subjective Date Patient Seen: 12/21/24 Time Patient Seen: 10:04 Interval history: LFTs downtrending, platelets rising. Pain control improving. Has not yet had lopez removed due to Mag so not voiding. Did sleep for a few hours overnight after baby transferred out Call placed to schedule regional to review baby status. Still on bubble CPAP, settings have not changed since transfer. ABG is reassuring. Started on antibiotics. Glucoses stabilized. Considering surfactant administration but not yet decided. Anticipating continued CPAP needs Exam Vital Signs (past 8 hours): Oxygen Delivery Method Room Air BP - 121/83 P- PP BPM RR- 19 breaths per min temp- 98.2 F Narrative Exam Narrative: Gen: well appearing, NAD, tired appearing Pulm: breathing comfortbaly on RA Skin: no rashes or pallor Abd: appropriate post-op tenderness, fundus firm below Umbilicus. MSK: stable edema present Objective Labs 12/21/24 08:20 12/21/24 08:20 Labs: Laboratory Results - last 24 hr 12/20/24 12/20/24 12/20/24 15:23 18:30 21:13 WBC 24.4 H D RBC 4.53 Hgb 13.7 Hct 40.3 MCV 88.9 MCH 30.2 MCHC 33.9 RDW 13.5 Plt Count 129 L Neut % (Auto) 87.4 H Lymph % (Auto) 6.4 L Real % (Auto) 5.2 Eos % (Auto) 0.6 L Baso % (Auto) 0.4 Neut # (Auto) 06815 H Lymph # (Auto) 1600 Real # (Auto) 1300 H Eos # (Auto) 100 Baso # (Auto) 100 Total Counted Seg Neutrophils % Band Neutrophils % Lymphocytes % (Manual) Monocytes % (Manual) Neutrophils # (Manual) Toxic Granulation Present H Toxic Vacuolation Present H Platelet Estimate Plt Morphology Comment RBC Morphology Normal morphology Cord ABG pH Cancelled Cord ABG pCO2 Cancelled Cord ABG pO2 Cancelled Cord ABG HCO3 Cancelled Cord ABG Base Excess Cancelled Cord ABG O2 Sat Cancelled Cord VBG pH Cord VBG pCO2 Cord VBG pO2 Cord VBG HCO3 Cord VBG Base Excess Cord VBG O2 Sat Sodium 133 L Potassium 4.3 Chloride 106 Carbon Dioxide 16 L BUN 14 Creatinine 0.67 Estimated GFR > 60 BUN/Creatinine Ratio 20.9 Glucose 116 H Calcium 9.5 Magnesium Total Bilirubin 0.4 AST 50 H ALT 54 H Alkaline Phosphatase 159 H Total Protein 7.1 Albumin 4.1 Globulin 3.0 Albumin/Globulin Ratio 1.4 Blood Type O Positive Antibody Screen Negative Crossmatch See Detail 12/20/24 12/21/24 12/21/24 21:22 01:17 08:20 WBC 28.8 H 29.6 H RBC 4.11 4.32 Hgb 12.4 12.9 Hct 36.3 38.5 MCV 88.5 89.1 MCH 30.2 29.9 MCHC 34.1 33.6 RDW 13.8 13.6 Plt Count 148 L 154 Neut % (Auto) Not Reportable 91.5 H Lymph % (Auto) Not Reportable 5.2 L Real % (Auto) Not Reportable 3.2 Eos % (Auto) Not Reportable 0.0 L Baso % (Auto) Not Reportable 0.1 Neut # (Auto) 65244 H Lymph # (Auto) Not Reportable 1500 Real # (Auto) Not Reportable 900 Eos # (Auto) 0 Baso # (Auto) Not Reportable 0 Total Counted 100 Seg Neutrophils % 87.0 H Band Neutrophils % 7.0 Lymphocytes % (Manual) 1.0 L Monocytes % (Manual) 5.0 Neutrophils # (Manual) 07847 H Toxic Granulation Toxic Vacuolation Platelet Estimate Decreased on smear Plt Morphology Comment RBC Morphology Normal morphology Cord ABG pH Cord ABG pCO2 Cord ABG pO2 Cord ABG HCO3 Cord ABG Base Excess Cord ABG O2 Sat Cord VBG pH Cancelled Cord VBG pCO2 Cancelled Cord VBG pO2 Cancelled Cord VBG HCO3 Cancelled Cord VBG Base Excess Cancelled Cord VBG O2 Sat Cancelled Sodium 131 L 132 L Potassium 3.9 4.1 Chloride 106 105 Carbon Dioxide 15 L 19 L BUN 10 9 Creatinine 0.62 0.71 Estimated GFR > 60 > 60 BUN/Creatinine Ratio 16.1 12.7 Glucose 213 H 195 H Calcium 8.1 L 7.4 L Magnesium 4.7 H 6.4 H* Total Bilirubin 0.4 0.3 AST 64 H 62 H ALT 64 H 62 H Alkaline Phosphatase 139 H 134 H Total Protein 6.0 L 6.4 Albumin 3.2 L 3.6 Globulin 2.8 2.8 Albumin/Globulin Ratio 1.1 1.3 Blood Type Antibody Screen Crossmatch [facility] Medical History (Updated 12/14/24 @ 11:27 by Shahrzad Hong MD) Hypertension affecting Migraine without aura Exclusive by mother Dyspareunia Laceration of finger Acne (~2001) Headache (~1997) Chicken pox (~1992) Surgical History H/O wisdom tooth extraction (~2008) Anesthesia History of plastic surgery (~1991) Family History (Updated 06/29/24 @ 13:20 by Catherine Malhotra RN) Brother Hypertension Depression Substance abuse Mother Autoimmune disease Father Healthy adult Grandmother Cancer Grandfather Healthy adult Grandmother Family history unknown Grandfather No problems noted. 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) current occupational exposures/hazards: Yes Previous occupational history: exposure to covid gracie/yazdanism: None special gracie needs: No travel history: recent (domestic only) and other leisure activities: exercise seatbelt use: always helmet use: Yes water heater temp set < 120 deg: Yes working smoke detector in home: Yes fire extinguisher in home: Yes carbon monox detector in home: Yes firearms in home: No do you feel safe at home: Yes Smoking Status: Never smoker second hand exposure: Yes ( vapes, but not inside and close to ) alcohol intake: former (~4-5/week when not ) substance use type: does not use during the past year weight has: increased > 10 lbs well-balanced diet: daily or most days daily servings fruits/ve-4 caffeine: Yes (1 cup/tea) Type(s) of exercise: walking, bicycling and occasional exercise (bodyweight exercises and light weights @ [employer]) frequency: 1-2 times per week Assessment & Plan Post-op Postoperative Procedures: Procedures Operation Date: 12/20/24 19:30 Actual Procedure Side Surgeon p Section Not Applicable Shahrzad Hong MD Postoperative day: 1 Postoperative status: doing well Postoperative status narrative: 34-year-old on POD 1 following presenting unscheduled repeat LTCS at 36w0d due to elevated BPs, intractable BAHENA, blurry vision, LFT elevation and thorombocytpoenia. Pt on Magnesium, plan for discontinuation of magnesium at 12:00 p.m. post delivery. Labs repeated this morning and showing downtrending LFTs and up trending platelets. Hemoglobin showing an appropriate postop drop with no signs of development of anemia. Pressures since delivery has been largely within normal limits. She was continued on nifedipine 30 mg b.i.d. and labetalol 200 mg t.i.d. postop. -continue magnesium what for 24 hours from time of delivery, plant to turn off just before 9:00 p.m. tonight -patient requesting to leave hospital as soon as possible as baby is admitted to [facility] for respiratory support, still on CPAP. -continue trending blood pressures closely -continue labetalol 200 mg t.i.d. and nifedipine XL 30 mg b.i.d. -trend labs q.12 hours, most recent labs reassuring. If next round reassuring as well can space out to daily -routine postop care for pain control, Toradol for 24 hours then ibuprofen plus Tylenol, oxycodone for breakthrough pain -Benadryl for itching secondary to duramorph in spinal -fundal checks per unit routine Postoperative plan: see orders Time Spent With Patient Time with patient: less than 15 minutes
[2024-12-21 09:54] VITALS: BP 121/83; PULSE 80
[2024-12-21] MEDS: LABETALOL 100 MG TABLET 200 MG PO ×2 (09:54→23:03)
[2024-12-21] MEDS: NIFEdipine 30 MG TAB ER PO ×2 (09:54→23:02)
[2024-12-21] MEDS: PRENATAL VIT,CALC/IRON/FOLIC 1 TABLET 1 TAB PO (09:54)
[2024-12-21 17:37] VITALS: TEMP 36.7
[2024-12-21 20:04] LABS: Hematocrit 40.2 % (36-46); Hemoglobin 13.4 g/dL (12.0-16.0); Mean Corpuscular HGB Conc 33.3 % (30-36); Mean Corpuscular Hemoglobin 29.9 PG (26-34); Mean Corpuscular Volume 89.8 fL (80-100); Platelet Count 163 X10^3/uL (150-400); Red Blood Cell Count 4.48 X10^6/uL (4.0-5.2); Red Cell Distribution Width 14.1 % (11.6-14.8); White Blood Cell Count 27.6 X10^3/uL (4.5-11.0)
[2024-12-21 20:05] LABS: Add Manual Diff / Slide Review YES
[2024-12-21 20:11] LABS: Alanine Aminotransferase 54 IU/L (<35); Albumin 3.5 g/dL (3.5-5.0); Albumin Globulin Ratio 1.3 (1.0-2.8); Alkaline Phosphatase 133 U/L (38-126); Aspartate Aminotransferase 57 IU/L (14-36); BUN Creatinine Ratio 17.9 (6-22); Bilirubin Total 0.3 mg/dL (0.2-1.3); Blood Urea Nitrogen 14 mg/dL (7-17); Carbon Dioxide 23 mmol/L (22-32); Chloride 102 mmol/L (98-107); Estimated Glomerular Filt Rate > 60 mL/min (>60); Globulin 2.8 g/dL (1.7-4.1); Glucose 176 mg/dL (70-99); HEMOLYSIS < 15 (0-50); Potassium 4.4 mmol/L (3.4-5.1); Sodium 131 mmol/L (137-145); Total Protein 6.3 g/dL (6.3-8.2)
[2024-12-21 20:22] LABS: Neutrophils Absolute Manual 23460 /uL (3000-5900); Total Cells Counted 100
[2024-12-21 20:23] LABS: RBC Morphology Normal Morphology
[2024-12-21 20:24] LABS: Calcium 6.4 mg/dL (8.4-10.2)
[2024-12-21] MEDS: IBUPROFEN 600 MG TABLET PO (23:02)
[2024-12-22] MEDS: OXYCODONE IR 5 MG TABLET PO ×3 (01:08→14:08)
[2024-12-22] MEDS: ACETAMINOPHEN 325 MG TABLET 650 MG PO ×3 (01:08→14:08)
[2024-12-22] MEDS: IBUPROFEN 600 MG TABLET PO ×3 (06:01→20:57)
[2024-12-22 08:28] LABS: Add Manual Diff / Slide Review NO; Basophils Absolute Auto 100 /uL (0-100); Basophils Percent Auto 0.4 % (0-2); Eosinophils Absolute Auto 0 /uL (0-450); Eosinophils Percent Auto 0.1 % (2-4); Hematocrit 38.4 % (36-46); Hemoglobin 12.8 g/dL (12.0-16.0); Lymphocytes Absolute Auto 1800 /uL (1100-4500); Lymphocytes Percent Auto 8.6 % (25-40); Mean Corpuscular HGB Conc 33.5 % (30-36); Mean Corpuscular Hemoglobin 30.2 PG (26-34); Mean Corpuscular Volume 90.2 fL (80-100); Monocytes Absolute Auto 1000 /uL (0-900); Monocytes Percent Auto 4.7 % (3-14); Neutrophils Absolute Auto 17800 /uL (1500-7000); Neutrophils Percent Auto 86.2 % (50-75); Platelet Count 159 X10^3/uL (150-400); Red Blood Cell Count 4.25 X10^6/uL (4.0-5.2); Red Cell Distribution Width 14.2 % (11.6-14.8); White Blood Cell Count 20.6 X10^3/uL (4.5-11.0)
[2024-12-22 08:41] LABS: Alanine Aminotransferase 48 IU/L (<35); Albumin 3.3 g/dL (3.5-5.0); Albumin Globulin Ratio 1.1 (1.0-2.8); Alkaline Phosphatase 127 U/L (38-126); Aspartate Aminotransferase 51 IU/L (14-36); BUN Creatinine Ratio 22.9 (6-22); Bilirubin Total 0.3 mg/dL (0.2-1.3); Blood Urea Nitrogen 16 mg/dL (7-17); Calcium 6.7 mg/dL (8.4-10.2); Carbon Dioxide 21 mmol/L (22-32); Chloride 105 mmol/L (98-107); Estimated Glomerular Filt Rate > 60 mL/min (>60); Globulin 2.9 g/dL (1.7-4.1); Glucose 146 mg/dL (70-99); HEMOLYSIS < 15 (0-50); Potassium 4.1 mmol/L (3.4-5.1); Sodium 134 mmol/L (137-145); Total Protein 6.2 g/dL (6.3-8.2)
[2024-12-22 08:42] VITALS: BP 143/85; PULSE 88
[2024-12-22] MEDS: PRENATAL VIT,CALC/IRON/FOLIC 1 TABLET 1 TAB PO (08:42)
[2024-12-22] MEDS: NIFEdipine 30 MG TAB ER PO ×2 (08:42→20:57)
[2024-12-22] MEDS: LABETALOL 100 MG TABLET 200 MG PO ×2 (08:42→20:57)
--- NOTE | 2024-12-22 09:03 | PM.OBPN.1 ---
Subjective - OB Subjective Patient comments: pain well controlled, tolerating diet and flatus present baby status: NICU ([facility]) Narrative: Overnight pain well controlled. This AM experiencing some dizziness/vision changes. no nausea/vomiting, or headache. pain well controlled. Put abd binder on this AM. Passing gas. Ambulating with some discomfort still at [facility], working on weaning down, currently on high-flow of 5-6 L. CPAP turned off overnight. Did have 1 desaturation following CPAP weaning but is now tolerating high-flow well. Chest x-ray normal and tolerating OG feeds. Do not anticipate discharge in the near future. Date Patient Seen: 12/22/24 Time Patient Seen: 09:04 Exam Vital Signs (past 8 hours): - 12/22/24 08:42 Pulse Rate 88 Blood Pressure 143/85 H Oxygen Delivery Method Room Air BP: 143/85 (hasnt had Am BP meds yet0 P: 88 Narrative Exam Narrative: Gen: well appearing, NAD, tired appearing Pulm: breathing comfortbaly on RA Skin: no rashes or pallor Abd: appropriate post-op tenderness, fundus firm below Umbilicus, dressing clean and dry MSK: stable edema present Objective Labs 12/22/24 08:23 12/22/24 08:23 Labs: Laboratory Results - last 24 hr 12/20/24 12/21/24 12/22/24 18:30 19:47 08:23 WBC 27.6 H 20.6 H RBC 4.48 4.25 Hgb 13.4 12.8 Hct 40.2 38.4 MCV 89.8 90.2 MCH 29.9 30.2 MCHC 33.3 33.5 RDW 14.1 14.2 Plt Count 163 159 Neut % (Auto) Not Reportable 86.2 H Lymph % (Auto) Not Reportable 8.6 L [place] % (Auto) Not Reportable 4.7 Eos % (Auto) Not Reportable 0.1 L Baso % (Auto) Not Reportable 0.4 Neut # (Auto) 51272 H Lymph # (Auto) Not Reportable 1800 [place] # (Auto) Not Reportable 1000 H Eos # (Auto) 0 Baso # (Auto) Not Reportable 100 Total Counted 100 Seg Neutrophils % 84.0 H Band Neutrophils % 1.0 L Lymphocytes % (Manual) 5.0 L D Monocytes % (Manual) 10.0 Neutrophils # (Manual) 04237 H RBC Morphology Normal morphology Sodium 131 L 134 L Potassium 4.4 4.1 Chloride 102 105 Carbon Dioxide 23 21 L BUN 14 16 Creatinine 0.78 0.70 Estimated GFR > 60 > 60 BUN/Creatinine Ratio 17.9 22.9 H Glucose 176 H 146 H Calcium 6.4 L* 6.7 L Total Bilirubin 0.3 0.3 AST 57 H 51 H ALT 54 H 48 H Alkaline Phosphatase 133 H 127 H Total Protein 6.3 6.2 L Albumin 3.5 3.3 L Globulin 2.8 2.9 Albumin/Globulin Ratio 1.3 1.1 Crossmatch See Detail Assessment & Plan Plan day: 2 Comments: 34-year-old on POD 2 following unscheduled repeat LTCS at 36w0d due to elevated BPs, intractable BAHENA, blurry vision, LFT elevation and thorombocytpoenia. Pt on Magnesium, plan for discontinuation of magnesium at 12:00 p.m. post delivery. Labs repeated this morning and showing downtrending LFTs and up trending platelets. Hemoglobin showing an appropriate postop drop with no signs of development of anemia. Pressures since delivery has been largely within normal limits but this AM slightly highe but hasnt yet taken AM meds so will give and recheck. She was continued on nifedipine 30 mg b.i.d. and labetalol 200 mg t.i.d. postop. - s/p 24 hours of mag stopped last night at 9pm, remain inpt for 24 hours following mag d/c - baby is admitted to [facility] for respiratory support, now on high flow at 6L down from CPAP -continue trending blood pressures closely -continue labetalol 200 mg t.i.d. and nifedipine XL 30 mg b.i.d. -trend labs q.12 hours, most recent labs reassuring but this AM recheck still pending. -routine postop care for pain control, Toradol for 24 hours then ibuprofen plus Tylenol, oxycodone for breakthrough pain -fundal checks per unit routine Time-Based Coding :: [TOTAL MINUTES] spent with patient and on the chart (including review of chart, obtaining history, exam, reviewing outside data, placing orders, documenting exam and treatment plan, and counseling patient) on [DATE].
[2024-12-23] MEDS: ACETAMINOPHEN 325 MG TABLET 650 MG PO ×3 (00:47→09:49)
[2024-12-23] MEDS: IBUPROFEN 600 MG TABLET PO ×2 (03:00→09:49)
[2024-12-23 07:13] LABS: Alanine Aminotransferase 55 IU/L (<35); Albumin 3.4 g/dL (3.5-5.0); Albumin Globulin Ratio 1.2 (1.0-2.8); Alkaline Phosphatase 114 U/L (38-126); Aspartate Aminotransferase 63 IU/L (14-36); BUN Creatinine Ratio 26.6 (6-22); Bilirubin Total 0.4 mg/dL (0.2-1.3); Blood Urea Nitrogen 17 mg/dL (7-17); Calcium 8.4 mg/dL (8.4-10.2); Carbon Dioxide 22 mmol/L (22-32); Chloride 104 mmol/L (98-107); Estimated Glomerular Filt Rate > 60 mL/min (>60); Globulin 2.8 g/dL (1.7-4.1); Glucose 74 mg/dL (70-99); HEMOLYSIS < 15 (0-50); Potassium 4.3 mmol/L (3.4-5.1); Sodium 135 mmol/L (137-145); Total Protein 6.2 g/dL (6.3-8.2)
[2024-12-23 07:42] LABS: Add Manual Diff / Slide Review NO; Basophils Absolute Auto 0 /uL (0-100); Basophils Percent Auto 0.3 % (0-2); Eosinophils Absolute Auto 200 /uL (0-450); Eosinophils Percent Auto 1.1 % (2-4); Hematocrit 39.8 % (36-46); Hemoglobin 13.2 g/dL (12.0-16.0); Lymphocytes Absolute Auto 2900 /uL (1100-4500); Lymphocytes Percent Auto 19.7 % (25-40); Mean Corpuscular HGB Conc 33.2 % (30-36); Mean Corpuscular Hemoglobin 30.1 PG (26-34); Mean Corpuscular Volume 90.8 fL (80-100); Monocytes Absolute Auto 1100 /uL (0-900); Monocytes Percent Auto 7.5 % (3-14); Neutrophils Absolute Auto 10600 /uL (1500-7000); Neutrophils Percent Auto 71.4 % (50-75); Platelet Count 166 X10^3/uL (150-400); Red Blood Cell Count 4.39 X10^6/uL (4.0-5.2); Red Cell Distribution Width 14.1 % (11.6-14.8); White Blood Cell Count 14.8 X10^3/uL (4.5-11.0)
[2024-12-23 09:00] VITALS: BP 142/92; PULSE 107
[2024-12-23] MEDS: LABETALOL 100 MG TABLET 200 MG PO (09:00)
[2024-12-23] MEDS: PRENATAL VIT,CALC/IRON/FOLIC 1 TABLET 1 TAB PO (09:01)
[2024-12-23] MEDS: NIFEdipine 30 MG TAB ER PO (09:01)
[2024-12-23] MEDS: AMITRIPTYLINE 10 MG TABLET PO (09:39)
--- NOTE | 2024-12-23 12:39 | PM.OBDS.1 ---
Discharge Providers Provider Date of admission: 12/20/24 14:57 Discharge Date: 12/23/24 Primary care physician: Shahrzad Hong MD Consults: 12/20/24 22:05 Consult to Security Sergeant Routine Comment: Discharge provider: Keli Crandall MD Summary Hospital Course Date Patient Seen: 12/23/24 Time Patient Seen: 11:35 Diagnoses: Thirty-six weeks' gestation HELLP syndrome Previous section Hospital Course: Patient is a 34-year-old 2 para August 16, 2002 who presented on December 20, 2024 for a repeat section due to HELLP syndrome. She was on magnesium sulfate for 24 hours. She is pumping and has adequate supply. No headache, blurred vision, spots before her eyes, or right upper quadrant pain. Her pain is well controlled with ibuprofen and Tylenol. Blood pressures have been stable. She is urinating without the catheter. She has tolerating a diet. She is ambulating without assistance. Peripartum Data Delivery Method: Section Procedures: Spinal anesthesia Repeat low transverse section complications: none 1: Gender: Female Disposition of : NICU (At [facility]) Status at Discharge Cognitive/behavioral status at discharge: oriented Functional status at discharge: independent ambulation Overall status at discharge: patient is progressing back to baseline Time Spent with Patient Time attestation: Total time spent providing and/or coordinating discharge services: Time spent: Less than 30 minutes Objective Labs 12/23/24 07:00 12/23/24 06:25 Labs: Laboratory Results - last 24 hr 12/20/24 12/23/24 12/23/24 18:30 06:25 07:00 WBC 14.8 H RBC 4.39 Hgb 13.2 Hct 39.8 MCV 90.8 MCH 30.1 MCHC 33.2 RDW 14.1 Plt Count 166 Neut % (Auto) 71.4 Lymph % (Auto) 19.7 L [place] % (Auto) 7.5 Eos % (Auto) 1.1 L Baso % (Auto) 0.3 Neut # (Auto) 55799 H Lymph # (Auto) 2900 [place] # (Auto) 1100 H Eos # (Auto) 200 Baso # (Auto) 0 Sodium 135 L Potassium 4.3 Chloride 104 Carbon Dioxide 22 BUN 17 Creatinine 0.64 Estimated GFR > 60 BUN/Creatinine Ratio 26.6 H Glucose 74 Calcium 8.4 Total Bilirubin 0.4 AST 63 H ALT 55 H Alkaline Phosphatase 114 Total Protein 6.2 L Albumin 3.4 L Globulin 2.8 Albumin/Globulin Ratio 1.2 Crossmatch See Detail Exam Vital Signs (past 8 hours): - 12/23/24 09:00 Pulse Rate 107 H Blood Pressure 142/92 H Oxygen Delivery Method Room Air Narrative Exam Narrative: Generally: Patient is sitting up in bed, pumping, no acute distress Lungs: Clear to auscultation bilaterally Cardiovascular: Regular rate and rhythm Fundus: Firm at U -1 Incision: Clean dry and intact with Aquacel dressing Extremities: Trace edema, negative Homans, no clonus Discharge Plan Discharge Plan Patient Disposition: Home Provider Discharge Comment: Call with fever, chills, redness or drainage around the incision, or bleeding vaginally more than a pad in an hour Call with headache, blurred vision, spots before her eyes, or right upper quadrant pain Tylenol 650 mg every 6 hours as needed Ibuprofen 600 mg every 6 hours as needed Push oral fluids Stool softener as needed Discharge orders & Medications Prescriptions: New labetalol 200 mg tablet 200 mg PO TID Qty: 90 3RF nifedipine 30 mg tablet extended release 30 mg PO DAILY Qty: 30 3RF docusate sodium [Colace] 100 mg capsule 100 mg PO DAILY Qty: 20 0RF oxycodone 5 mg tablet 5 mg PO Q6H PRN (Reason: pain) Qty: 14 0RF Continued [id number] acid [ Multi] 1 tab PO .QD amitriptyline 10 mg tablet 10 mg PO DAILY Qty: 90 3RF omega [id number] oil [Fish Oil] 1,000 mg (120 mg-180 mg) capsule 2 cap PO BID Discontinued labetalol 200 mg tablet 200 mg PO BID Qty: 30 0RF cyclobenzaprine 5 mg tablet 5 mg PO TID PRN (Reason: muscle spasm) Qty: 30 0RF nifedipine 30 mg tablet extended release 30 mg PO BID Qty: 20 0RF Follow up/Referrals: Shahrzad Hong MD [Primary Care Provider] - (Follow up for a 1 week incision check with Dr. Hong on WednesdayDecember 29 at 1:15pm. Dr. Hong will also see infant at this time. Follow up for a [address] Hong on WednesdayFebruary 02, at 2:00pm. ) Diet/Activity/Treatments Diet: Regular Activity: No heavy lifting Skin/Wound/Dressing Care Report to your healthcare provider any signs of infection, such as:: chills, fever, increased pain, unusual drainage and unusual redness Dressing: Do not remove dressing Visit Report/Discharge Packet Instructions: DI for , HELLP Syndrome, DI for Prescription Opioid Use Stand Alone Forms: Discharge: Care, Patient Portal/API, Stroke Signs & Symptoms Discharge Data Primary Care Provider: Shahrzad Hong
== END 2024-12-23 12:45 | disposition home or self-care (01) | DRG 787 ==
PROVIDERS: Admitting Provider Family Medicine; PCP Family Medicine; Referring Provider Family Medicine; Visit Provider Family Medicine
PROC: 10D00Z1 Extraction of Products of Conception, Low, Open Approach (ICD-10-PCS; CPT 59514; principal; 2024-12-20 19:30)
DX: O14.24 HELLP syndrome, complicating childbirth (principal); O99.12 Other diseases of the blood and blood-forming organs and certain disorders involving the immune mechanism complicating childbirth; D69.6 Thrombocytopenia, unspecified; Z3A.36 36 weeks gestation of pregnancy; Z37.0 Single live birth; O76 Abnormality in fetal heart rate and rhythm complicating labor and delivery; O99.892 Other specified diseases and conditions complicating childbirth; N28.89 Other specified disorders of kidney and ureter
CPT/HCPCS: 36415; 59050; 80053; 82803; 83735; 85007; 85025; 86850; 86900; 86901; G0379; J0131; J0690; J0702; J1100; J1885; J2175; J2405; J2590; J2765; J3475

== ENCOUNTER 2025-02-21 08:15 | Outpatient (RCR) | payer OTHER, SELFPAY ==
--- NOTE | 2025-01-23 17:35 | PT.OIE ---
Current Diagnoses Pelvic and perineal pain (01/23/25) Other reduced mobility (01/23/25) Past Medical History (Last Updated 12/14/24 @ 11:27 by Shahrzad Hong MD) Acne (~2001) Chicken pox (~1992) Dyspareunia Exclusive by mother Headache (~1997) Hypertension affecting Laceration of finger Migraine without aura Past Surgical History (Last Reviewed 01/13/24 @ 13:07 by LISANDRO Multani) Anesthesia H/O wisdom tooth extraction (~2008) History of plastic surgery (~1991) Visit Care Team Role Provider Type Shahrzad Hnog MD Attending Provider Physician Family Provider Primary Care Provider Referring Provider Specialty: Family Practice SUPPLY OFFICER Address: [address] [place] [address], [facility] Fax: Email: [email or web address] Physical Therapy Initial Evaluation PT-OP-A Visit Information Start: 01/23/25 08:08 Freq: Status: Active Protocol: Document 01/23/25 10:47 [facility] (Rec: 01/23/25 10:47 [facility] [id number]) Out-Patient Physical Therapy Visit Information Visit Information Visit Type Initial Evaluation Visit Start Time 10:45 Visit Stop Time 11:30 Visit Number 1 Evaluation Information Evaluation Date 01/23/25 PT-OP-B Current Condition Start: 01/23/25 08:08 Freq: Status: Active Protocol: Document 01/23/25 10:47 [facility] (Rec: 01/23/25 10:57 [facility] [id number]) Current Condition History of Current Condition History of Current 1 month from her 2nd baby Condition She is wanting to learn how to safely get back to being activy she likes to bike and hike, she has a 3 year old so this involves a lot of carying C section delivery x 2 SHe has been doing slow super short walks and using a carrier picking up her 3 year old she feels a lot of pressure around the incision area. incision area is irritatied with clothing. She recently started wearing compression pants rolling in bed is still difficult. PT-OP-F Manual Assessment Start: 01/23/25 08:08 Freq: Status: Active Protocol: Document 01/23/25 10:45 [facility] (Rec: 01/23/25 16:59 [facility] [id number]) Manual Assessments Soft Tissue Assessment Soft Tissue Mobility there is still healing occurring with the Assessment scar and steri strips are still in place with exception of of the left lateral part of the incision, there is scar tissue felt here and we will further address the scar as the incision is fully healed lumbar paraspinal tightness and guarding Other Manual Assessments Other Manual diastasis screening reveals a 2 finder width separation Assessments proximal to the umbilicus, no conning noted PT-OP-J Posture/Palpation/Skin Start: 01/23/25 08:08 Freq: Status: Active Protocol: Document 01/23/25 10:45 [facility] (Rec: 01/23/25 16:59 [facility] [id number]) Posture Evaluation Position Standing Evaluation View Lateral L-Spine Posture Increased Lordosis PT-OP-M Strength Start: 01/23/25 08:08 Freq: Status: Active Protocol: Document 01/23/25 17:00 [facility] (Rec: 01/23/25 17:00 [facility] [id number]) Trunk Strength Trunk Manual Muscle Testing Flexion 3 Fair Core Stabilization Decreased activation of the transverse abdominal musculature, decreased pelvic floor activation PT-OP-Q Treatments Start: 01/23/25 08:08 Freq: Status: Active Protocol: Document 01/23/25 16:45 [facility] (Rec: 01/23/25 16:56 [facility] [id number]) Therapeutic Exercises Other Exercises supine march Reps/Minutes x 10 quadruped TA isolations Reps/Minutes x 6 reps Comments worked on exhale with contraction abdiel pose Reps/Minutes 1-2 reps holding 1-2 min cat cow Reps/Minutes x 10 reps PT-OP-T Assessment and Plan Start: 01/23/25 08:08 Freq: Status: Active Protocol: Document 01/25/25 17:26 [facility] (Rec: 01/25/25 17:34 [facility] [id number]) Physical Therapy Assessment Rehab Potential Rehabilitation Excellent Potential Evaluation Complexity Number of Personal 1-2 Factors/ Comorbidities Number of Body 3 Systems Impaired Clinical Evolving Presentation at Evaluation Impairments Impairments Activity Tolerance,Pain,Soft Tissue Mobility,Strength Other Impairments recovery with abdominal weakness Goals 3 Impairment pt lacks a home program for post core strengthening s/p delivery Group Home Goal (LTG) Mar is independent with a HEP for pelvic floor and core strengthening LTG Duration 8 weeks 2 Impairment increased lumbar lordosis with anterior pelvic tilt and tightness of the lumbar paraspinal muscles Memorial Adviser Goal (LTG) Mar is independent with a home program addressing her posture and muscle imbalances LTG Duration 8 weeks 1 Impairment core weakness Short Term Goal (STG Mar is educated on transverse abdominal and pelvic ) floor bracing prior to rolling in bed or with positional changes STG Duration 4 weeks [employer] Adviser Goal (LTG) Mar is able to facilitate her inner core for dynamic lumbar stabilization exercises LTG Duration 8 weeks Assessment Summary Assessment Mar is a 34 year old female who is 4 weeks with delivery. She is seeking PT for assistance with recovery. SHe is having difficulty with activities that include rolling over in bed and getting up from the floor without discomfort or pain. Time was spent today working on pelvic floor and transverse abdominal facilitation and on stretches that she can do for her low back. She is still healing from her scar and treatment will progress to gentle scar tissue mobilization once she is fully healed. She presents with weakness in her core and is tight in the low back paraspinals. Her posture is in a anterior pelvic tilt and she was educated on finding neutral spine to avoid undue strain to her spine. She tolerated today's treatment well and is a good candidate for PT
--- NOTE | 2025-01-25 17:35 | PT.OPPOC ---
Physical, Occupational & Speech Therapy At [facility] Current Diagnoses Pelvic and perineal pain (01/23/25) Other reduced mobility (01/23/25) Visit Care Team Role Provider Type Shahrzad Hong MD Attending Provider Physician Family Provider Primary Care Provider Referring Provider Specialty: Family Practice [employer]ENT[employer] Address: [address] [place] [address], [facility] Fax: Email: [email or web address] Plan Of Care PT-OP-B Current Condition Start: 01/23/25 08:08 Freq: Status: Active Protocol: Document 01/23/25 10:47 [facility] (Rec: 01/23/25 10:57 [facility] [id number]) Current Condition History of Current Condition History of Current 1 month from her 2nd baby Condition She is wanting to learn how to safely get back to being activity she likes to bike and hike, she has a 3 year old so this involves a lot of carrying C section delivery x 2 She has been doing slow super short walks and using a carrier picking up her 3 year old she feels a lot of pressure around the incision area. incision area is irritated with clothing. She recently started wearing compression pants rolling in bed is still difficult. PT-OP-T Assessment and Plan Start: 01/23/25 08:08 Freq: Status: Active Protocol: Document 01/25/25 17:26 [facility] (Rec: 01/25/25 17:34 [facility] [id number]) Physical Therapy Assessment Rehab Potential Rehabilitation Excellent Potential Evaluation Complexity Number of Personal 1-2 Factors/ Comorbidities Number of Body 3 Systems Impaired Clinical Evolving Presentation at Evaluation Impairments Impairments Activity Tolerance,Pain,Soft Tissue Mobility,Strength Other Impairments recovery with abdominal weakness Goals 3 Impairment pt lacks a home program for post core strengthening s/p delivery Half-Way Goal (LTG) Mar is independent with a HEP for pelvic floor and core strengthening LTG Duration 8 weeks 2 Impairment increased lumbar lordosis with anterior pelvic tilt and tightness of the lumbar paraspinal muscles Half-Way Goal (LTG) Mar is independent with a home program addressing her posture and muscle imbalances LTG Duration 8 weeks 1 Impairment core weakness Short Term Goal (STG Mar is educated on transverse abdominal and pelvic ) floor bracing prior to rolling in bed or with positional changes STG Duration 4 weeks Half-Way Goal (LTG) Mar is able to facilitate her inner core for dynamic lumbar stabilization exercises LTG Duration 8 weeks Assessment Summary Assessment Mar is a 34 year old female who is 4 weeks with delivery. She is seeking PT for assistance with recovery. SHe is having difficulty with activities that include rolling over in bed and getting up from the floor without discomfort or pain. Time was spent today working on pelvic floor and transverse abdominal facilitation and on stretches that she can do for her low back. She is still healing from her scar and treatment will progress to gentle scar tissue mobilization once she is fully healed. She presents with weakness in her core and is tight in the low back paraspinals. Her posture is in a anterior pelvic tilt and she was educated on finding neutral spine to avoid undue strain to her spine. She tolerated today's treatment well and is a good candidate for PT Electronically Signed by: Elaina Woodard, PT 01/25/25 0936 If you are in agreement with this Plan of Care, please return a signed and dated copy. I have reviewed this Plan of Care and certify that the skilled therapy services above are required to meet the patient?s needs. Physician Signature Date Printed Name and Credentials Clinical Instructor Signature Printed Name and Credentials
--- NOTE | 2025-02-01 08:12 | PT.OTN ---
Current Diagnoses Pelvic and perineal pain (02/01/25) Other reduced mobility (02/01/25) Physical Therapy Treatment Note PT-OP-A Visit Information Start: 01/23/25 08:08 Freq: Status: Active Protocol: Document 02/01/25 07:30 SP (Rec: 02/01/25 08:18 SP [id number]) Out-Patient Physical Therapy Visit Information Visit Information Visit Type Treatment Note Visit Start Time 07:30 Visit Stop Time 08:12 Visit Number 2 Number of SALESPERSON SURGICAL APPLIANCES Visits 1 Evaluation Information Evaluation Date 01/23/25 PT-OP-B Current Condition Start: 01/23/25 08:08 Freq: Status: Active Protocol: Document 01/23/25 10:47 [facility] (Rec: 01/23/25 10:57 [facility] [id number]) Current Condition History of Current Condition History of Current 1 month from her 2nd baby Condition She is wanting to learn how to safely get back to being activy she likes to bike and hike, she has a 3 year old so this involves a lot of carying C section delivery x 2 SHe has been doing slow super short walks and using a carrier picking up her 3 year old she feels a lot of pressure around the incision area. incision area is irritatied with clothing. She recently started wearing compression pants rolling in bed is still difficult. PT-OP-C Subjective Start: 01/23/25 08:08 Freq: Status: Active Protocol: Document 02/01/25 07:30 SP (Rec: 02/01/25 08:18 SP [id number]) OP-PT Subjective Patient Comments Patient Comments Pt reports is better about engaging TA before move. Is noticing less pain with mobility more automatic TA but once in while moves and forgets engage and feels pain under surgical site. Compliant with HEP and feel they help. PT-OP-F Manual Assessment Start: 01/23/25 08:08 Freq: Status: Active Protocol: Document 01/23/25 10:45 [facility] (Rec: 01/23/25 16:59 [facility] [id number]) Manual Assessments Soft Tissue Assessment Soft Tissue Mobility there is still healing occurring with the Assessment scar and steri strips are still in place with exception of of the left lateral part of the incision, there is scar tissue felt here and we will further address the scar as the incision is fully healed lumbar paraspinal tightness and guarding Other Manual Assessments Other Manual diastasis screening reveals a 2 finder width separation Assessments proximal to the umbilicus, no conning noted PT-OP-J Posture/Palpation/Skin Start: 01/23/25 08:08 Freq: Status: Active Protocol: Document 01/23/25 10:45 [facility] (Rec: 01/23/25 16:59 [facility] [id number]) Posture Evaluation Position Standing Evaluation View Lateral L-Spine Posture Increased Lordosis PT-OP-M Strength Start: 01/23/25 08:08 Freq: Status: Active Protocol: Document 01/23/25 17:00 [facility] (Rec: 01/23/25 17:00 [facility] [id number]) Trunk Strength Trunk Manual Muscle Testing Flexion 3 Fair Core Stabilization Decreased activation of the transverse abdominal musculature, decreased pelvic floor activation PT-OP-Q Treatments Start: 01/23/25 08:08 Freq: Status: Active Protocol: Document 02/01/25 07:30 SP (Rec: 02/01/25 08:18 SP [id number]) Therapeutic Exercises Other Exercises TA KFO Other Exercise Name added to HEP with HO Side bilateral Resistance AROM Equipment Used hands under/side pelvis on table for self feedback Reps/Minutes 20 reps alternating Comments Cues for TA draw in and Lower ribcage toward table, level pelvis, slow pace Ta Trng Other Exercise Name Ed: pre TA october Reps/Minutes 5 SH x10 Comments good breath with engaggement Modified Squat Other Exercise Name added to HEP with HO Side bilateral Equipment Used grasp shins Reps/Minutes 30 sec x2 Comments good response- gentle adductor stretch quadruped TA isolations Reps/Minutes x 10 reps Comments cues for exhale with contraction abdominal abdiel pose Reps/Minutes 1-2 reps holding 1-2 min cat cow Reps/Minutes x 10 reps Therapeutic Activity Therapeutic Activity TA log roll technique, SL<>Sit Reps/Minutes few reps Comments Cues for TA draw in, during log roll and UE support with TA transitioning SL<>sit. Improved decreased tension felt over surgical site. Self-Care/Home Management Treatment Education Patient Education Body Mechanics,Pain Management,Safety Other Education Time spent education on lifting precautions until COMMUNICATIONS ENGINEER clears her to allow carrying more than her baby's weight. TA trng during bed and transfer mobility. PT-OP-T Assessment and Plan Start: 01/23/25 08:08 Freq: Status: Active Protocol: Document 02/01/25 07:30 SP (Rec: 02/01/25 08:18 SP [id number]) Physical Therapy Assessment Goals 3 Impairment pt lacks a home program for post core strengthening s/p delivery Residential Goal (LTG) Mar is independent with a HEP for pelvic floor and core strengthening LTG Duration 8 weeks 2 Impairment increased lumbar lordosis with anterior pelvic tilt and tightness of the lumbar paraspinal muscles Drum Worker Goal (LTG) Mar is independent with a home program addressing her posture and muscle imbalances LTG Duration 8 weeks 1 Impairment core weakness Short Term Goal (STG Mar is educated on transverse abdominal and pelvic ) floor bracing prior to rolling in bed or with positional changes STG Duration 4 weeks Residential Goal (LTG) Mar is able to facilitate her inner core for dynamic lumbar stabilization exercises LTG Duration 8 weeks Assessment Summary Assessment Tx focused on core and pelvic floor strengthening, verbal and tactile cues for PPT with TA draw in during hooklying LE mobility weaker on L > R marching but improves maintain hold as reps progressed. Education with performance TA log roll and SL>sit with UE support to decreased discomfort and pain at surgical site. Initiated TA KFO, modified Squat/Happy Baby and piriformis stretch end tx for hip mobility allowance with good feedback decreased adductor tightness and core support when moving LE out to side. Physical Therapy Plan Next Visit Focus/Plan Next Note Type Treatment Note Next Visit Plan Continue Abdominal and pelvic floor strengthening. Check in when has follow up with COMMUNICATIONS ENGINEER and if any continued restrictions for mobility and for PT POC.
--- NOTE | 2025-02-06 10:57 | PT.OPPOC ---
Physical, Occupational & Speech Therapy At [facility] Current Diagnoses Pelvic and perineal pain (02/01/25) Other reduced mobility (02/01/25) Visit Care Team Role Provider Type Shahrzad Hong MD Attending Provider Physician Family Provider Primary Care Provider Referring Provider Specialty: Family Practice [employer] Address: [address] [place] [address], [facility] Fax: Email: [email or web address] Plan Of Care PT-OP-B Current Condition Start: 01/23/25 08:08 Freq: Status: Active Protocol: Document 01/23/25 10:47 [facility] (Rec: 01/23/25 10:57 [facility] [id number]) Current Condition History of Current Condition History of Current 1 month from her 2nd baby Condition She is wanting to learn how to safely get back to being activy she likes to bike and hike, she has a 3 year old so this involves a lot of carying C section delivery x 2 SHe has been doing slow super short walks and using a carrier picking up her 3 year old she feels a lot of pressure around the incision area. incision area is irritatied with clothing. She recently started wearing compression pants rolling in bed is still difficult. PT-OP-T Assessment and Plan Start: 01/23/25 08:08 Freq: Status: Active Protocol: Document 02/01/25 07:30 SP (Rec: 02/01/25 08:18 SP [id number]) Physical Therapy Assessment Goals 3 Impairment pt lacks a home program for post core strengthening s/p delivery Statistical Financial Analyst Goal (LTG) Mar is independent with a HEP for pelvic floor and core strengthening LTG Duration 8 weeks 2 Impairment increased lumbar lordosis with anterior pelvic tilt and tightness of the lumbar paraspinal muscles Prison Goal (LTG) Mar is independent with a home program addressing her posture and muscle imbalances LTG Duration 8 weeks 1 Impairment core weakness Short Term Goal (STG Mar is educated on transverse abdominal and pelvic ) floor bracing prior to rolling in bed or with positional changes STG Duration 4 weeks Statistical Financial Analyst Goal (LTG) Mar is able to facilitate her inner core for dynamic lumbar stabilization exercises LTG Duration 8 weeks Assessment Summary Assessment Tx focused on core and pelvic floor strengthening, verbal and tactile cues for PPT with TA draw in during hooklying LE mobility weaker on L > R marching but improves maintain hold as reps progressed. Education with performance TA log roll and SL>sit with UE support to decreased discomfort and pain at surgical site. Initiated TA KFO, modified Squat/Happy Baby and piriformis stretch end tx for hip mobility allowance with good feedback decreased adductor tightness and core support when moving LE out to side. Physical Therapy Plan Next Visit Focus/Plan Next Note Type Treatment Note Next Visit Plan Continue Abdominal and pelvic floor strengthening. Check in when has follow up with WEB ANALYTICS DEVELOPER and if any continued restrictions for mobility and for PT POC. Plan of Care Dates Plan of Care Start Date 01/23/25 Plan of Care End Date 04/17/25 Electronically Signed by: Elaina Woodard, PT 02/06/25 0013 If you are in agreement with this Plan of Care, please return a signed and dated copy. I have reviewed this Plan of Care and certify that the skilled therapy services above are required to meet the patient?s needs. Physician Signature Date Printed Name and Credentials Clinical Instructor Signature Printed Name and Credentials
--- NOTE | 2025-02-07 08:22 | PT.OTN ---
Current Diagnoses Pelvic and perineal pain (02/07/25) Other reduced mobility (02/07/25) Physical Therapy Treatment Note PT-OP-A Visit Information Start: 01/23/25 08:08 Freq: Status: Active Protocol: Document 02/07/25 07:32 SP (Rec: 02/07/25 09:01 SP [id number]) Out-Patient Physical Therapy Visit Information Visit Information Visit Type Treatment Note Visit Start Time 07:32 Visit Stop Time 08:22 Visit Number 3 Number of ON CALL PHARMACY TECHNICIAN Visits 2 Evaluation Information Evaluation Date 01/23/25 PT-OP-B Current Condition Start: 01/23/25 08:08 Freq: Status: Active Protocol: Document 01/23/25 10:47 [facility] (Rec: 01/23/25 10:57 [facility] [id number]) Current Condition History of Current Condition History of Current 1 month from her 2nd baby Condition She is wanting to learn how to safely get back to being activy she likes to bike and hike, she has a 3 year old so this involves a lot of carying C section delivery x 2 SHe has been doing slow super short walks and using a carrier picking up her 3 year old she feels a lot of pressure around the incision area. incision area is irritatied with clothing. She recently started wearing compression pants rolling in bed is still difficult. PT-OP-C Subjective Start: 01/23/25 08:08 Freq: Status: Active Protocol: Document 02/07/25 07:32 SP (Rec: 02/07/25 09:01 SP [id number]) OP-PT Subjective Patient Comments Patient Comments Pt stated has been busy lately not doing HEP as much as could. Still effort rolling over and getting up from floor. She states alot work discomfort over Csection getting in/out son's bynum bed about waist height into small space and making bed. PT-OP-F Manual Assessment Start: 01/23/25 08:08 Freq: Status: Active Protocol: Document 01/23/25 10:45 [facility] (Rec: 01/23/25 16:59 [facility] [id number]) Manual Assessments Soft Tissue Assessment Soft Tissue Mobility there is still healing occurring with the Assessment scar and steri strips are still in place with exception of of the left lateral part of the incision, there is scar tissue felt here and we will further address the scar as the incision is fully healed lumbar paraspinal tightness and guarding Other Manual Assessments Other Manual diastasis screening reveals a 2 finder width separation Assessments proximal to the umbilicus, no conning noted PT-OP-J Posture/Palpation/Skin Start: 01/23/25 08:08 Freq: Status: Active Protocol: Document 01/23/25 10:45 [facility] (Rec: 01/23/25 16:59 [facility] [id number]) Posture Evaluation Position Standing Evaluation View Lateral L-Spine Posture Increased Lordosis PT-OP-M Strength Start: 01/23/25 08:08 Freq: Status: Active Protocol: Document 01/23/25 17:00 [facility] (Rec: 01/23/25 17:00 AMH [id number]) Trunk Strength Trunk Manual Muscle Testing Flexion 3 Fair Core Stabilization Decreased activation of the transverse abdominal musculature, decreased pelvic floor activation PT-OP-Q Treatments Start: 01/23/25 08:08 Freq: Status: Active Protocol: Document 02/07/25 07:32 SP (Rec: 02/07/25 09:01 SP [id number]) Therapeutic Exercises Supine Exercises Piriformis Stretch Supine Exercise Name Reviewed added previous tx Side right Reps/Minutes 30-60 s hold Comments cued breath, good feedback lalter and gluteal region stretch ITB Stretch Supine Exercise Name added to HEP with H O Side bilateral Resistance R>L Equipment Used strap on foot Reps/Minutes 60sec x2 Comments good feedback lateral R thigh stretch- tightness reduction Sidelying Exercises Clamshell Sidelying Exercise added to HEP declined HO Name Side bilateral Resistance Tb #2 teal Reps/Minutes 2x10 Comments little wobble initial reps then improved TA and hip abd engagment Other Exercises TA KFO Other Exercise Name Reviewed Side bilateral Resistance AROM> TB # 2 teal Reps/Minutes 20 reps alternating Comments improved pelvic stab and gentle core engagement Ta Trng Other Exercise Name TA october Reps/Minutes 5 SH x10 Comments good breath with engaggement Modified Squat Other Exercise Name Reviewed Side bilateral Equipment Used grasp shins Reps/Minutes 30 sec x2 Comments good response- gentle adductor stretch supine october Other Exercise Name verbal review 02/07/25 Reps/Minutes x 10 quadruped TA isolations Reps/Minutes x 10 reps Comments cues for exhale with contraction abdominal Therapeutic Activity Therapeutic Activity TA on/off floor Name 1. on /off floor 2. on/off elevated mat table ( assimulation son's bunk bed) Reps/Minutes 2 reps each Comments Time spent education TA fac/draw in during Log roll to side and fac trunk right to sit SL<> sit for added comfort support<>1/2 kneel<>squat to standing Complete from floor and in/out bunkbed. Bunkbed: discussed reverse getting in to back out/off bed with support of UE on above and Bed rails to slow self step back down to step stool then floor- less mobility sequencing steps vs turning all way around forward to get out of bunkbed and potentially waking up and giving more TA support. Pt reports does seem much easier, will try home. TA log roll technique, SL<>Sit Reps/Minutes few reps Comments Cues for TA draw in, during log roll and UE support with TA transitioning SL<>sit. Improved decreased tension felt over surgical site. PT-OP-T Assessment and Plan Start: 01/23/25 08:08 Freq: Status: Active Protocol: Document 02/07/25 07:32 SP (Rec: 02/07/25 09:01 SP [id number]) Physical Therapy Assessment Goals 3 Impairment pt lacks a home program for post core strengthening s/p delivery Surgical Processor Goal (LTG) Mar is independent with a HEP for pelvic floor and core strengthening LTG Duration 8 weeks 2 Impairment increased lumbar lordosis with anterior pelvic tilt and tightness of the lumbar paraspinal muscles Fdc Goal (LTG) Mar is independent with a home program addressing her posture and muscle imbalances LTG Duration 8 weeks 1 Impairment core weakness Short Term Goal (STG Mar is educated on transverse abdominal and pelvic ) floor bracing prior to rolling in bed or with positional changes STG Duration 4 weeks Surgical Processor Goal (LTG) Mar is able to facilitate her inner core for dynamic lumbar stabilization exercises LTG Duration 8 weeks Assessment Summary Assessment Pt improved TA engagement less tactile feedback for PPT during ther ex today. Continued education and better core bracing carryover log roll with slower pacing for support then progressing on/off floor and in/out son's bunkbed. Pt would like neuromuscular pelvic floor feedback next tx with PT for awareness of strength and carryover TA support. Physical Therapy Plan Frequency and Duration Frequency of 1x/Week Treatment Duration of 12 treatment (weeks) Plan of Care Start 01/23/25 Date Plan of Care End 04/17/25 Date Therapeutic Interventions Therapeutic Home Exercise Program,Neuromuscular Re-education, Interventions Patient/Caregiver Education,Self-Care/Home Management, Therapeutic Exercises Modalities Biofeedback Next Visit Focus/Plan Next Note Type Treatment Note Next Visit Plan Continue Abdominal and pelvic floor strengthening, check if incorporate neuromuscular feedback. She doesn' t have any follow up with PIPE FINISHER , unsure of any restrictions for mobility at this point. Next recheck HEP, TA with mobility and manual scar if healed.
--- NOTE | 2025-02-14 12:39 | PT.OTN ---
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 Evaluation Information Evaluation Date 01/23/25 PT-OP-B Current Condition Start: 01/23/25 08:08 Freq: Status: Active Protocol: Document 01/23/25 10:47 [facility] (Rec: 01/23/25 10:57 [facility] [id number]) Current Condition History of Current Condition History of Current 1 month from her 2nd baby Condition She is wanting to learn how to safely get back to being activy she likes to bike and hike, she has a 3 year old so this involves a lot of carying C section delivery x 2 SHe has been doing slow super short walks and using a carrier picking up her 3 year old she feels a lot of pressure around the incision area. incision area is irritatied with clothing. She recently started wearing compression pants rolling in bed is still difficult. PT-OP-C Subjective Start: 01/23/25 08:08 Freq: Status: Active Protocol: Document 02/14/25 11:35 [facility] (Rec: 02/14/25 12:34 [facility] [id number]) OP-PT Subjective Patient Comments Patient Comments pt notes as long as she remembers to engage her core and roll over it is better PT-OP-F Manual Assessment Start: 01/23/25 08:08 Freq: Status: Active Protocol: Document 01/23/25 10:45 [facility] (Rec: 01/23/25 16:59 [facility] [id number]) Manual Assessments Soft Tissue Assessment Soft Tissue Mobility there is still healing occurring with the Assessment scar and steri strips are still in place with exception of of the left lateral part of the incision, there is scar tissue felt here and we will further address the scar as the incision is fully healed lumbar paraspinal tightness and guarding Other Manual Assessments Other Manual diastasis screening reveals a 2 finder width separation Assessments proximal to the umbilicus, no conning noted PT-OP-J Posture/Palpation/Skin Start: 01/23/25 08:08 Freq: Status: Active Protocol: Document 01/23/25 10:45 [facility] (Rec: 01/23/25 16:59 [facility] [id number]) Posture Evaluation Position Standing Evaluation View Lateral L-Spine Posture Increased Lordosis PT-OP-M Strength Start: 01/23/25 08:08 Freq: Status: Active Protocol: Document 01/23/25 17:00 [facility] (Rec: 01/23/25 17:00 [facility] [id number]) Trunk Strength Trunk Manual Muscle Testing Flexion 3 Fair Core Stabilization Decreased activation of the transverse abdominal musculature, decreased pelvic floor activation PT-OP-Q Treatments Start: 01/23/25 08:08 Freq: Status: Active Protocol: Document 02/14/25 11:35 [facility] (Rec: 02/14/25 12:34 [facility] [id number]) Therapeutic Exercises Supine Exercises TA with SLR Reps/Minutes x 10 reps Comments left side feels weaker Piriformis Stretch Supine Exercise Name Reviewed added previous tx Side right Reps/Minutes 30-60 s hold Comments cued breath, good feedback lalter and gluteal region stretch ITB Stretch Supine Exercise Name added to HEP with H O Side bilateral Resistance R>L Equipment Used strap on foot Reps/Minutes 60sec x2 Comments good feedback lateral R thigh stretch- tightness reduction Sidelying Exercises Clamshell Sidelying Exercise added to HEP declined HO Name Side bilateral Resistance no TB today Reps/Minutes 2x10 Other Exercises TA KFO Other Exercise Name Reviewed Side bilateral Resistance AROM> TB # 2 teal Reps/Minutes 20 reps alternating Comments improved pelvic stab and gentle core engagement Ta Trng Other Exercise Name TA october Reps/Minutes 5 SH x10 Comments good breath with engaggement Modified Squat Other Exercise Name Reviewed Side bilateral Equipment Used grasp shins Reps/Minutes 30 sec x2 Comments good response- gentle adductor stretch supine october Other Exercise Name verbal review 02/07/25 Reps/Minutes x 10 quadruped TA isolations Reps/Minutes x 10 reps Comments cues for exhale with contraction abdominal abdiel pose Other Exercise Name left side of the low back is tight so added on side stretches Reps/Minutes 1-2 reps holding 1-2 min Comments cues to walk hands to right and hold then left and hold cat cow Reps/Minutes x 10 reps Manual Therapy Treatment Consent Patient gave verbal Yes consent for manual treatment Soft Tissue Mobilization scar tissue massage scar Mobilization Type Myofascial Release,Other Comments scar tissue mobilization using small circles proximal and distal to the scar. 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) Mar is independent with a HEP for pelvic floor and core strengthening LTG Duration 8 weeks 2 Impairment increased lumbar lordosis with anterior pelvic tilt and tightness of the lumbar paraspinal muscles Half-Way Goal (LTG) Mar is independent with a home program addressing her posture and muscle imbalances LTG Duration 8 weeks 1 Impairment core weakness Short Term Goal (STG Mar is educated on transverse abdominal and pelvic ) floor bracing prior to rolling in bed or with positional changes STG Duration 4 weeks Half-Way Goal (LTG) Mar is able to facilitate her inner core for dynamic lumbar stabilization exercises LTG Duration 8 weeks Assessment Summary Assessment Mar is progressing well and feeling much better about transitional movements. I did start some C- section scar tissue mobilizations today and Mar tolerated this well. She was shown how to make small circles towards the incision along the length of the scar. There is some scar tissue adhesions so scar massage will be really good for her. I also added in TA with SLR. She is tight in her R ITB so we did review this stretch and discussed self mobilization with kenzie. Physical Therapy Plan Frequency and Duration Frequency of 1x/Week Treatment Duration of 12 treatment (weeks) Plan of Care Start 01/23/25 Date Plan of Care End 04/17/25 Date Therapeutic Interventions Therapeutic Home Exercise Program,Neuromuscular Re-education, Interventions Patient/Caregiver Education,Self-Care/Home Management, Therapeutic Exercises Modalities Biofeedback Next Visit Focus/Plan Next Note Type Treatment Note Next Visit Plan check how Mar did with scar tissue mobilization, review TA stabilization and all exercises. She just has one visit left so check in with if she feels ready to DC PT or if she would like to progress strengthening more
--- NOTE | 2025-02-21 09:32 | PT.OTN ---
Current Diagnoses Pelvic and perineal pain (02/21/25) Other reduced mobility (02/21/25) Physical Therapy Treatment Note PT-OP-A Visit Information Start: 01/23/25 08:08 Freq: Status: Active Protocol: Document 02/21/25 08:15 [facility] (Rec: 02/21/25 09:04 [facility] [id number]) Out-Patient Physical Therapy Visit Information Visit Information Visit Type Treatment Note Visit Start Time 08:15 Visit Stop Time 09:00 Visit Number 5 PT-OP-B Current Condition Start: 01/23/25 08:08 Freq: Status: Active Protocol: Document 01/23/25 10:47 [facility] (Rec: 01/23/25 10:57 [facility] [id number]) Current Condition History of Current Condition History of Current 1 month from her 2nd baby Condition She is wanting to learn how to safely get back to being activy she likes to bike and hike, she has a 3 year old so this involves a lot of carying C section delivery x 2 SHe has been doing slow super short walks and using a carrier picking up her 3 year old she feels a lot of pressure around the incision area. incision area is irritatied with clothing. She recently started wearing compression pants rolling in bed is still difficult. PT-OP-C Subjective Start: 01/23/25 08:08 Freq: Status: Active Protocol: Document 02/21/25 08:15 [facility] (Rec: 02/21/25 09:19 [facility] [id number]) OP-PT Subjective Patient Comments Patient Comments pt reports she is doing better overall, she notes she hasn't had a lot of time this week to do her exercises as her baby sustained a skull fracture. Overall she is feeling she is improving and feeling good about progression of her HEP Patient Reported Improving Progress PT-OP-F Manual Assessment Start: 01/23/25 08:08 Freq: Status: Active Protocol: Document 01/23/25 10:45 [facility] (Rec: 01/23/25 16:59 [facility] [id number]) Manual Assessments Soft Tissue Assessment Soft Tissue Mobility there is still healing occurring with the Assessment scar and steri strips are still in place with exception of of the left lateral part of the incision, there is scar tissue felt here and we will further address the scar as the incision is fully healed lumbar paraspinal tightness and guarding Other Manual Assessments Other Manual diastasis screening reveals a 2 finder width separation Assessments proximal to the umbilicus, no conning noted PT-OP-J Posture/Palpation/Skin Start: 01/23/25 08:08 Freq: Status: Active Protocol: Document 01/23/25 10:45 [facility] (Rec: 01/23/25 16:59 [facility] [id number]) Posture Evaluation Position Standing Evaluation View Lateral L-Spine Posture Increased Lordosis PT-OP-M Strength Start: 01/23/25 08:08 Freq: Status: Active Protocol: Document 01/23/25 17:00 [facility] (Rec: 01/23/25 17:00 [facility] [id number]) Trunk Strength Trunk Manual Muscle Testing Flexion 3 Fair Core Stabilization Decreased activation of the transverse abdominal musculature, decreased pelvic floor activation PT-OP-Q Treatments Start: 01/23/25 08:08 Freq: Status: Active Protocol: Document 02/21/25 08:15 [facility] (Rec: 02/21/25 09:04 [facility] [id number]) Therapeutic Exercises Supine Exercises TA with SLR Reps/Minutes x 10 reps Piriformis Stretch Supine Exercise Name Reviewed added previous tx Side right Reps/Minutes 30-60 s hold Comments cued breath, good feedback lalter and gluteal region stretch ITB Stretch Supine Exercise Name added to HEP with H O Side bilateral Resistance R>L Equipment Used strap on foot Reps/Minutes 60sec x2 Comments good feedback lateral R thigh stretch- tightness reduction Prone Exercises prone on elbows stretch Reps/Minutes hold 10-20 sec Sidelying Exercises Clamshell Reps/Minutes 2x10 reps Other Exercises quadraped opp leg left Reps/Minutes x10 quadruped oa lift with TA brace Reps/Minutes x 10 reps supine march Reps/Minutes x 10 reps quadruped TA isolations Reps/Minutes x 5 reps abdiel pose Other Exercise Name left side of the low back is tight so added on side stretches Reps/Minutes 1-2 reps holding 1-2 min Comments cues to walk hands to right and hold then left and hold cat cow Reps/Minutes x 10 reps Manual Therapy Treatment Consent Patient gave verbal Yes consent for manual treatment Soft Tissue Mobilization scar tissue massage scar Mobilization Type Myofascial Release,Other Comments scar tissue mobilization using small circles proximal and distal to the scar. 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) Mar is independent with a HEP for pelvic floor and core strengthening goal met LTG Duration 8 weeks 2 Impairment increased lumbar lordosis with anterior pelvic tilt and tightness of the lumbar paraspinal muscles Detention Goal (LTG) Mar is independent with a home program addressing her posture and muscle imbalances goal met LTG Duration 8 weeks 1 Impairment core weakness Short Term Goal (STG Mar is educated on transverse abdominal and pelvic ) floor bracing prior to rolling in bed or with positional changes goal met STG Duration 4 weeks Detention Goal (LTG) Mar is able to facilitate her inner core for dynamic lumbar stabilization exercises goal met LTG Duration 8 weeks Assessment Summary Assessment Mar is showing good overall progress with core strength . She has been given a progression of exercises to work on and feels good with her program for home. The scar is feeling better now and she was able to go into a prone on elbows stretch today without pain. At this point she is Ind with her HEP and will be discharged Physical Therapy Plan Therapeutic Interventions Modalities Biofeedback Discharge Physical Therapy Discharge Reasons Goals Met
== END 2025-03-01 09:36 | disposition home or self-care (01) ==
LOC: PHYS 08:15
PROVIDERS: Family Provider Family Medicine; PCP Family Medicine; Referring Provider Family Medicine; Visit Provider Family Medicine
DX: Z74.09 Other reduced mobility (principal); R10.2 Pelvic and perineal pain
CPT/HCPCS: 97110; 97140; 97161; 97530; 97535